=== PATIENT | male | born 1945 | race Caucasian/White ===

== ENCOUNTER 2016-10-16 09:21 | Emergency (ER) | payer MEDICARE, OTHER ==
[2016-10-16 09:30] VITALS: BP 139/66
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
== END 2016-10-16 13:20 | disposition home or self-care (01) ==
LOC: ER 09:21
PROC: 0JQ00ZZ Repair Scalp Subcutaneous Tissue and Fascia, Open Approach (ICD-10-PCS; principal; 2016-10-16)
PROC: 0JQ10ZZ Repair Face Subcutaneous Tissue and Fascia, Open Approach (ICD-10-PCS; 2016-10-16)
DX: S01.01XA Laceration without foreign body of scalp, initial encounter (principal); S01.81XA Laceration without foreign body of other part of head, initial encounter; W07.XXXA Fall from chair, initial encounter; Y92.238 Other place in hospital as the place of occurrence of the external cause; F41.9 Anxiety disorder, unspecified; F32.9 Major depressive disorder, single episode, unspecified; K21.9 Gastro-esophageal reflux disease without esophagitis; E03.9 Hypothyroidism, unspecified; I10 Essential (primary) hypertension; R56.9 Unspecified convulsions

== ENCOUNTER 2016-11-17 13:54 | Inpatient (IN) | payer MEDICARE, OTHER ==
--- OUTSIDE RECORDS SUMMARY | 2016-11-17 14:51 | XMS REPORT | Continuity of Care Document ---
:1945 Author Organization [facility] ([facility]) Address [address] [place] [address] Phone [phone] Care Team Providers Name Role Phone Jared Copeland Primary Care Provider [phone] Source Comments This disclosure is being made pursuant to the Care Everywhere program, applicable federal and state laws, and may not contain all informaitonavailable regarding this patient.[facility] ([facility]) Active Allergies and Adverse Reactions Allergen Noted Date Severity Reactions Comments Amoxicillin 09/28/2011 Rash Current Medications Prescription Sig. Disp. Refills Start Date End Date Status aspirin 325 mg tablet Take 325 mg by mouth Active daily. finasteride (PROSCAR) 5 Take 5 mg by mouth Active mg tablet daily. folic acid 1 mg tablet Take 1 mg by mouth Active daily. furosemide (LASIX) 20 Take 20 mg by mouth Active mg tablet daily. levothyroxine 100 mcg Take 100 mcg by Active tablet mouth every morning before breakfast. escitalopram (LEXAPRO) Take 10 mg by mouth Active 10 mg tablet daily. levetiracetam (KEPPRA) Take 500 mg by mouth Active 500 mg tablet daily. simvastatin (ZOCOR) 40 Take 40 mg by mouth Active mg tablet every evening. sucralfate (CARAFATE) 1 Take 1 g by mouth 4 Active gram tablet times daily. terazosin (HYTRIN) 2 mg Take 2 mg by mouth Active capsule at bedtime. OLANZapine (ZYPREXA) 20 Take 20 mg by mouth Active mg tablet at bedtime. LORazepam (ATIVAN) 0.5 Take 0.5 mg by mouth Active mg tablet every 4 hours as needed. MAG HYDROX/AL Take by mouth as Active HYDROX/SIMETH (MAALOX needed. PO) docusate (COLACE) 100 Take 100 mg by mouth Active mg capsule 2 times daily. omeprazole 20 mg Take 20 mg by mouth Active extended release Every morning. capsule potassium chloride Take 20 mEq by mouth Active (K-DUR, KLOR-CON M20) 2 times daily. 20 mEq tablet moisturizing (EUCERIN) apply 1 application Active cream topically as needed. polyethylene glycol Take 17 g by mouth 2 Active 3350 (MIRALAX) 17 times daily. gram/dose powder [place]-3 Fatty Take 1,000 mg by Active Acids-Vitamin E (FISH mouth 3 times daily. OIL) 1,000 mg Cap donepezil (ARICEPT) 5 Take 5 mg by mouth Active mg tablet at bedtime. levETIRAcetam (KEPPRA) Take 1,000 mg by Active 1,000 mg tablet mouth at bedtime. omeprazole (PRILOSEC) Take 40 mg by mouth Active 40 mg capsule at bedtime. Docosanol (ABREVA) 10 % by Apply externally Active Crea route as needed. albuterol 2.5 mg/3 mL Use 2.5 mg by Active inhalation solution inhalation every 4 hours as needed. NA PHOS,M-B/NA insert rectally as Active PHOS,DI-BA (FLEET ENEMA needed. VA) Vivuiwrbqsm-Bakxn-Sewu. Take by mouth as Active Sup 11 5-500 mg Cmpk needed. IPRATROPIUM/ALBUTEROL Use by inhalation Active SULFATE (DUONEB INH) as needed. ACETAMINOPHEN (TYLENOL Take 1,000 mg by Active EXTRA STRENGTH PO) mouth as needed. lamoTRIgine (LAMICTAL) Take 1 Tab by mouth 62 Tab 11 09/28/2011 Active 100 mg tablet 2 times daily. 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 Abdominal pain, unspecified site 03/25/2007 Congestive heart failure, unspecified 03/01/2007 Down's syndrome 02/08/2007 Social History Tobacco Use Types Packs/Day Years Used Date Never Smoker Smokeless Tobacco: Never Used Last Filed Vital Signs Vital Sign Reading Time Taken Blood Pressure 126/60 09/28/2011 2:02 PM 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 Pulse 64 09/28/2011 2:02 PM 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 Temperature 35.4 C (95.7 F) 03/09/2011 10:08 AM CDT Respiratory Rate - - Height 1.603 m (5' 3.11") 03/25/2008 9:25 AM CDT Weight 84.505 kg (186 lb 4.8 oz) 09/28/2011 2:02 PM 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 Body Mass Index 32.89 09/28/2011 2:02 PM 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 Oxygen Saturation - - Plan of Care Health Maintenance Due Date Last Done Comments Hepatitis B Vaccine (1 of 3 - Primary Series) 1945 Tdap Vaccine 1955 Td Vaccine 1962 Colonoscopy 1994 Prostate Cancer Screening 1994 Zoster Vaccine 2004 Pneumococcal Vaccine (1 of 2 - PCV13) 2009 Lipid Disorder Screening 04/18/2012 04/18/2007 Influenza Vaccine: Seasonal (#1) 04/24/2016 Results from Last 3 Months Not on file
--- NOTE | 2016-11-17 14:55 | ERNOTE ---
Dyspnea - General Presenting Symptoms: shortness of breath Time Seen by Provider: 11/17/16 14:39 Source: other Exam Limitations: clinical condition - Immun/Allergies/Home Medications Immunizations: IMMUNIZATION HX Immunizations Up to Date Yes History of Influenza Vaccine No Hx Pneumococcal Vaccination Yes Allergies/Adverse Reactions: Allergies soap Allergy (Severe, Verified 10/16/16 09:32) Hives amoxicillin [Amoxicillin] Allergy (Verified 10/16/16 09:32) prednisone Allergy (Verified 10/16/16 09:32) tamsulosin HCl [From Flomax] Allergy (Verified 10/16/16 09:32) Home Medications: HOME MEDICATIONS Albuterol Sulfate/Ipratropium [Duoneb 2.5-0.5MG/3ML Soln] 3 ml IH BID 11/08/15 [ Last Taken Unknown] Carbamide Peroxide [Debrox] 15 ml OT BID 11/08/15 [Last Taken Unknown] Chlorhexidine Gluconate [Periogard Oral Rinse 0.12%] 480 ml MM PC 11/08/15 [ Last Taken 11/08/15] Escitalopram Oxalate [Lexapro] 10 mg PO DAILY 11/08/15 [Last Taken 11/08/15] Esomeprazole Magnesium [Nexium] 40 mg PO DAILY 11/08/15 [Last Taken 11/08/15] Ipratropium [place] [Atrovent] 0.5 mg IH QID 11/08/15 [Last Taken 11/08/15] Lamotrigine [Lamictal] 100 mg PO BID 11/08/15 [Last Taken 11/08/15] Lanolin Alcohol/Mo/W.pet/[place] [Eucerin Creme] 57 gm TP DAILY 11/08/15 [Last Taken 11/08/15] Levetiracetam [Keppra] 1,000 mg PO HS 11/08/15 [Last Taken 11/07/15] Levothyroxine Sodium [Tirosint] 125 mcg PO DAILY 11/08/15 [Last Taken 11/08/15] Olanzapine [Zyprexa] 20 mg PO HS 11/08/15 [Last Taken 11/07/15] Polyethylene Glycol 3350 [Miralax] 17 gm PO DAILY 11/08/15 [Last Taken 11/08/15] Rosuvastatin Calcium [Crestor] 10 mg PO HS 11/08/15 [Last Taken 11/07/15] Sodium Chloride [Saline Mist] 45 ml NS BID 11/08/15 [Last Taken 11/08/15] levETIRAcetam [Keppra] 500 mg PO DAILY 11/08/15 [Last Taken 11/08/15] Nystatin 1,000,000 unit PO TID #1 bottle 12/03/15 [Last Taken Unknown] ALPRAZolam [Xanax] 0.25 mg PO TID PRN 08/07/16 [Last Taken Unknown] Albuterol Sulfate [Proair Hfa] 1 - 2 puff IH Q4H PRN 08/07/16 [Last Taken Unknown] Bisacodyl [Dulcolax Suppository] 10 mg RC DAILY PRN 08/07/16 [Last Taken Unknown ] Hydrocodone/Acetaminophen [Lortab 5-325 mg Tablet] 1 each PO Q4H PRN 08/07/16 [ Last Taken Unknown] Hydrophilic Ointment [Aquaphilic Ointment] 1 appl TP PRN PRN 08/07/16 [Last Taken Unknown] Lytes/[place] [Mouthkote Solution] 1 appl MM PRN PRN 08/07/16 [Last Taken Unknown] Polyvinyl Alcohol [Artificial Tears] 2 drop OP QID 08/07/16 [Last Taken Unknown] Saliva Substitution Combo No.9 [Biotene] 1 appl MM QID 08/07/16 [Last Taken Unknown] Triamcinolone Acetonide [Kenalog in Orabase] 1 appl DT BID 08/07/16 [Last Taken Unknown] guaiFENesin [Robitussin] 10 ml PO Q4H 08/07/16 [Last Taken Unknown] Acetaminophen [Tylenol] 1,000 mg PO Q6H PRN 10/16/16 [Last Taken Unknown] Simethicone [Mylicon Drops] 40 mg PO TID PRN 10/16/16 [Last Taken Unknown] Sucralfate [Carafate] 1 gm PO ACHS 10/16/16 [Last Taken Unknown] - History of Present Illness Narrative: Patient has down's syndrome and is living in a retirement. He is non verbal. Per licensed practical nurse who is with him he was okay when he got up this morning but around 08:30 started to 'gurgle'. Home health nurse that that evaluated him reports bilateral rales and O2 sat of 85%. When asked about po intake the caregiver states that he might have eaten less recently but had a whole packet of macaroni and cheese prior to coming here, no vomiting. He has had quite a few hospitalizations recently, was admitted in July 2016 for large pleural effusion and pneumonia, effusion was drained. He was admitted for pneumonia again mid August. Treatment GROOMING ASSISTANT: albuterol Initiating event: Denies: upper resp illness, out of meds, aspiration/choking Frequency of episodes: Reports: occassional episodes Review of Systems - Narrative Narrative: unobtainable as patient is non verbal - Patient's Past Medical History Patient History - Medical: Alzheimer's Disease, Anxiety, Depression, GERD, Hypothyroidism, Renal Failure, Seizures, Other Patient History - Cardiac/Respiratory: CHF, Hyperlipidemia Patient History - Cancer: No Hx of Cancer Patient History - Surgical Procedures: Cataracts, T & A Patient History - Other: None - Family History Mother Family History - Medical: Family History - Cardiac/Respiratory: Coronary Heart Disease Father Family History - Medical: Family History - Cardiac/Respiratory: Coronary Heart Disease - Social History Living Situations: home Abuse History: No History of abuse Psych History: No pertinent hx Alcohol Use: none Drug Use: none - Immunizations Immunizations Up to Date: Yes Hx Pneumococcal Vaccination: Yes History of Influenza Vaccine: No Physical Exam - Physical Exam General Appearance: Present: wd/wn, alert, no apparent distress Eye Exam: Normal inspection: bilateral, PERRL: bilateral Ears, Nose, Throat: Present: normal ENT inspection, normal pharynx Neck: Present: normal inspection Respiratory: Present: no respiratory distress, no accessory muscle use, chest nontender, rales - few, wheezing - few Cardiovascular/Chest: Present: regular rate, rhythm, no murmur Gastrointestinal/Abdominal: Present: normal bowel sounds, nontender, soft, distended Neurological Exam: Present: alert Skin Exam: Present: normal color, warm/dry ED Progress - Results and Orders Patient's Lab Results:: I have reviewed the patient's lab results. - Vital Signs Patient's Vital Signs:: I have reviewed the patient's vital signs. Vital Signs: Vital Signs 11/17/16 13:56 Temperature 36 C L Pulse Rate 96 Respiratory 20 Rate O2 Sat by Pulse 91 Oximetry - X-Ray X-Ray #1 X-Ray: chest - bibasilar infiltrate/interstitial prominence, most likely chronic Interpretation: Reviewed by me X-Ray #2 X-Ray: abdomen - non specific gas pattern, gaseous distention of the stomach Interpretation: Reviewed by me - Progress/Reassessment Chief Complaint: Dyspnea Progress Note-Subjective: 11/17/16 16:25 attempted to discuss patient with Dr Alegria, not available anymore 11/17/16 16:35 patient sitting in bed, O2 sat 88-90% on RA unlikely to be pneumonia as normal WBC, no fever favor CHF 11/17/16 16:[address] Mittal, okay to admit for observation for CHF, give lasix 80mg IV, get ABG 11/17/16 17:13 patient now febrile discussed with Dr Mittal, get rapid influenza, okay with antibiotic from pneumonia protocol Departure Clinical Impression: Down syndrome CHF (congestive heart failure) Qualifiers: Congestive heart failure type: unspecified congestive heart failure type Congestive heart failure chronicity: unspecified congestive heart failure chronicity Qualified Code(s): I50.9 - Heart failure, unspecified Pneumonia Qualifiers: Pneumonia type: due to unspecified organism Laterality: bilateral Lung location : lower lobe of lung Qualified Code(s): J18.9 - Pneumonia, unspecified organism - Departure Disposition: [facility] Condition: Fair
[2016-11-17 15:07] LABS: Hematocrit 45.5 % (42.0-52.0); Hemoglobin 14.5 gm/dL (13.5-18.0); Mean Cell Volume 94.4 fl (78-100); Mean Corpuscular Hemoglobin 30.1 pg (27-31); Mean Corpuscular Hgb Conc 31.9 g/dl (32-36); Mean Platelet Volume 9.8 fl (6.0-9.5); Neutrophil # 6.8 K/mm3 (1.3-6.0); Neutrophil % 82.7 % (42-75.0); Platelet Count 175 K/mm3 (150-450); Red Blood Count 4.82 M/mm3 (4.7-6.0); Red Cell Distribution Width 15.5 % (11.5-14.0); White Blood Count 8.2 K/mm3 (4.0-10.5)
[2016-11-17 15:38] LABS: Albumin * 3.4 gm/dl (3.4-5.0); Anion Gap 11.1 mmol/L (6.8-13.8); Bilirubin, Total 0.3 mg/dL (0.0-1.1); Ca. Corrected For Albumin 8.4 mg/dL (8.4-10.2); Calcium * 8.2 mg/dL (7.9-10.9); Carbon Dioxide 29.1 mmol/L (24-32.6); Potassium 4.2 mmol/L (3.4-4.6)
[2016-11-17] MEDS ORDERED: FUROSEMIDE 10 MG/ML VIAL IV ONE (16:55)
--- OUTSIDE RECORDS SUMMARY | 2016-11-17 17:09 | XMS REPORT | Continuity of Care Document ---
:1945 Author Organization [facility] ([facility]) Address [address] [place] [address] Phone [phone] Care Team Providers Name Role Phone Jared Copeland Primary Care Provider [phone] Source Comments This disclosure is being made pursuant to the Care Everywhere program, applicable federal and state laws, and may not contain all informaitonavailable regarding this patient.[facility] ([facility]) Active Allergies and Adverse Reactions Allergen Noted [...] 3350 (MIRALAX) 17 times daily. gram/dose powder [place]-3 Fatty Take 1,000 mg by Active Acids-Vitamin [...] rectally as Active PHOS,DI-BA (FLEET ENEMA needed. [place]) Shzzqqwrrav-Ghcxr-Ygqt. 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
[2016-11-17] MEDS ORDERED: FUROSEMIDE 10 MG/ML VIAL ONE (17:10)
[2016-11-17] MEDS ORDERED: LEVOFLOXACIN/D5W 750 MG in Premix Bag 1 BAG IV STA (17:19)
[2016-11-17] MEDS ORDERED: AZTREONAM 2 GM in DEXTROSE 5 % IN WATER 100 ML IV SCH ×2 (17:30)
[2016-11-17] MEDS: AZTREONAM 2 GM in DEXTROSE 5 % IN WATER 100 ML IV SCH ×2 (19:14)
--- NOTE | 2016-11-17 20:19 | HP ---
<Nichole Rinaldi - Last Filed: 11/18/16 07:21> Chief Complaint - Chief Complaint Date of Service: 11/17/16 Time of Service: 20:17 Chief Complaint: 'Gurgling sounds'. Source of HPI- Pt; unreliable, Pt's sister - ER provider report. History of Present Illness: Mr. Fernnado is a 71-yr-old WM Pt of Dr. Kemar Alegria with a PMH of: Anxiety, BPH, Chronic Renal Failure, Constipation, CHF, Down's Syndrome, GERD, HLD, Hypothyroidism & Seizures. History is obtained from pt's sister due to history of profound MRShade Ayala pt's was noted to have "gurgling LS" by the staff at the Nursing Home. Staff was concerned as that is how he presents when he is about to be sick. During evaluation at the ED, the CXR obtained showed Bibasilar infiltrates but it was improved from prior CXR. He was found to be febrile with a temp of 39.1 and was noted to have laboured breathing. The hematology and and chemistry lab work was unremarkable. The Abdominal X-ray showed mild to moderate gaseous distention. He will be admitted under observation status due to early signs of Pneumonia. He also had exam findings that could suggest SBO including: abd. distention & abd tenderness, and the presence of a fever, tachypnea may be early signs of complications. - Patient's Past Medical History Patient History - Medical: Alzheimer's Disease, Anxiety, Depression, GERD, Hypothyroidism, Renal Failure, Seizures, Other Patient History - Cardiac/Respiratory: CHF, Hyperlipidemia Patient History - Cancer: No Hx of Cancer Patient History - Surgical Procedures: Cataracts, T & A Patient History - Other: None - Family History Mother Family History - Medical: Family History - Cardiac/Respiratory: Coronary Heart Disease Father Family History - Medical: Family History - Cardiac/Respiratory: Coronary Heart Disease - Social History Living Situations: home Abuse History: No History of abuse Psych History: No pertinent hx Smoking Status: Never smoker Have you smoked in the past 12 months: No Do you dip or chew tobacco: No Alcohol Use: none Drug Use: none - Immunizations Immunizations Up to Date: Yes Hx Pneumococcal Vaccination: Yes History of Influenza Vaccine: No Review Of Systems (GEN) - Review of Systems Additional Comments: ROS unobtainable due to cognitive disorder. Immunizations: IMMUNIZATION HX Immunizations Up to Date Yes History of Influenza Vaccine No Hx Pneumococcal Vaccination Yes Allergies/Adverse Reactions: Allergies Allergy/AdvReac Type Severity Reaction Status Date / Time soap Allergy Severe Hives Verified 10/16/16 09:32 amoxicillin [Amoxicillin] Allergy Verified 10/16/16 09:32 prednisone Allergy Verified 10/16/16 09:32 tamsulosin HCl [From Flomax] Allergy Verified 10/16/16 09:32 Home Medications: HOME MEDICATIONS Albuterol Sulfate/Ipratropium [Duoneb 2.5-0.5MG/3ML Soln] 3 ml IH BID 11/08/15 [ Last Taken Unknown] Carbamide Peroxide [Debrox] 15 ml OT BID 11/08/15 [Last Taken Unknown] Chlorhexidine Gluconate [Periogard Oral Rinse 0.12%] 480 ml MM PC 11/08/15 [ Last Taken 11/08/15] Escitalopram Oxalate [Lexapro] 10 mg PO DAILY 11/08/15 [Last Taken 11/08/15] Esomeprazole Magnesium [Nexium] 40 mg PO DAILY 11/08/15 [Last Taken 11/08/15] Ipratropium [place] [Atrovent] 0.5 mg IH QID 11/08/15 [Last Taken 11/08/15] Lamotrigine [Lamictal] 100 mg PO BID 11/08/15 [Last Taken 11/08/15] Lanolin Alcohol/Mo/W.pet/[place] [Eucerin Creme] 57 gm TP DAILY 11/08/15 [Last Taken 11/08/15] Levetiracetam [Keppra] 1,000 mg PO HS 11/08/15 [Last Taken 11/07/15] Levothyroxine Sodium [Tirosint] 125 mcg PO DAILY 11/08/15 [Last Taken 11/08/15] Olanzapine [Zyprexa] 20 mg PO HS 11/08/15 [Last Taken 11/07/15] Polyethylene Glycol 3350 [Miralax] 17 gm PO DAILY 11/08/15 [Last Taken 11/08/15] Rosuvastatin Calcium [Crestor] 10 mg PO HS 11/08/15 [Last Taken 11/07/15] Sodium Chloride [Saline Mist] 45 ml NS BID 11/08/15 [Last Taken 11/08/15] levETIRAcetam [Keppra] 500 mg PO DAILY 11/08/15 [Last Taken 11/08/15] Nystatin 1,000,000 unit PO TID #1 bottle 12/03/15 [Last Taken Unknown] ALPRAZolam [Xanax] 0.25 mg PO TID PRN 08/07/16 [Last Taken Unknown] Albuterol Sulfate [Proair Hfa] 1 - 2 puff IH Q4H PRN 08/07/16 [Last Taken Unknown] Bisacodyl [Dulcolax Suppository] 10 mg RC DAILY PRN 08/07/16 [Last Taken Unknown ] Hydrocodone/Acetaminophen [Lortab 5-325 mg Tablet] 1 each PO Q4H PRN 08/07/16 [ Last Taken Unknown] Hydrophilic Ointment [Aquaphilic Ointment] 1 appl TP PRN PRN 08/07/16 [Last Taken Unknown] Lytes/[place] [Mouth[place] Solution] 1 appl MM PRN PRN 08/07/16 [Last Taken Unknown] Polyvinyl Alcohol [Artificial Tears] 2 drop OP QID 08/07/16 [Last Taken Unknown] Saliva Substitution Combo No.9 [Biotene] 1 appl MM QID 08/07/16 [Last Taken Unknown] Triamcinolone Acetonide [Kenalog in Or[place]] 1 appl DT BID 08/07/16 [Last Taken Unknown] guaiFENesin [Robitussin] 10 ml PO Q4H 08/07/16 [Last Taken Unknown] Acetaminophen [Tylenol] 1,000 mg PO Q6H PRN 10/16/16 [Last Taken Unknown] Simethicone [Mylicon Drops] 40 mg PO TID PRN 10/16/16 [Last Taken Unknown] Sucralfate [Carafate] 1 gm PO ACHS 10/16/16 [Last Taken Unknown] Exam - Exam Vital Signs: Vital Signs - Last Taken Temp 38.8 C H 11/17/16 19:49 Pulse 108 H 11/17/16 19:49 Resp 20 11/17/16 19:49 BP 112/82 11/17/16 19:49 Pulse Ox 91 11/17/16 19:49 Constitutional: Present: Alert, Mild distress, Other - Unable to follow directions due to prior cognitive deficit/MR, appears agitated, yells out. ENT Exam: Present: normal ENT inspection. Absent: nasal congestion, nasal drainage Eye Exam: bilateral eye: normal inspection, PERRL Neck: Present: full range of motion, supple, normal inspection Back Exam: Present: normal inspection, no CVA tenderness Breasts: Present: Exam deferred Respiratory: Present: accessory muscle use, rhonchi Cardiovascular/Chest: Present: normal peripheral pulses, regular rate, rhythm, no edema, no murmur Abdomen: Present: Normal bowel sounds, distended - Tympanitic abdomen /Rectal: Present: Exam deferred Extremity: Present: normal range of motion, non-tender, normal inspection Skin Exam: Present: warm/dry, no cyanosis Lymphatic: Present: no adenopathy Neurologic: Present: alert, other - unable to assess Level of orientation due to prior deficit. Appearance: Present: impaired insight Eye contact: Present: compulsive Thoughts: Present: incoherent Diagnostic Studies: Laboratory Results WBC 8.2 K/mm3 (4.0-10.5) 11/17/16 15:00 RBC 4.82 M/mm3 (4.7-6.0) 11/17/16 15:00 Hgb 14.5 gm/dL (13.5-18.0) 11/17/16 15:00 Hct 45.5 % (42.0-52.0) 11/17/16 15:00 MCV 94.4 fl (78-100) 11/17/16 15:00 MCH 30.1 pg (27-31) 11/17/16 15:00 MCHC 31.9 g/dl (32-36) L 11/17/16 15:00 RDW 15.5 % (11.5-14.0) H 11/17/16 15:00 Plt Count 175 K/mm3 (150-450) 11/17/16 15:00 MPV 9.8 fl (6.0-9.5) H 11/17/16 15:00 Immature Gran % (Auto) 0.10 % (0.001-0.429) 11/17/16 15:00 Immature Gran # (Auto) 0.01 K/mm3 (0.000-0.0310) 11/17/16 15:00 Neutrophils % 82.7 % (42-75.0) H 11/17/16 15:00 Lymphocytes % 12.8 % (20-51) L 11/17/16 15:00 Monocytes % 2.8 % (0.0-9) 11/17/16 15:00 Eosinophils % 1.5 % (0.0-3.0) 11/17/16 15:00 Basophils % 0.1 % (0.0-1.0) 11/17/16 15:00 Nucleated RBC % 0.0 k/mm3 (0-1) 11/17/16 15:00 Neutrophils # 6.8 K/mm3 (1.3-6.0) H 11/17/16 15:00 Lymphocytes # 1.1 k/mm3 (1.5-3.5) L 11/17/16 15:00 Monocytes # 0.2 k/mm3 (0.0-1.0) 11/17/16 15:00 Eosinophils # 0.1 k/mm3 (0.0-0.7) 11/17/16 15:00 Absolute Basophils 0.0 k/mm3 (0.0-0.1) 11/17/16 15:00 pCO2 40.2 mmHg (35.0-48.0) 11/17/16 16:55 pO2 64.7 mmHg (83.0-108.0) L 11/17/16 16:55 HCO3 23.1 mmol/L (21.0-28.0) 11/17/16 16:55 Total CO2 24.4 mmol/L (19.0-24.0) H 11/17/16 16:55 Base Excess -1.8 mmol/L (-2.0-3.0) 11/17/16 16:55 ABG pH 7.38 (7.35-7.45) 11/17/16 16:55 ABG O2 Sat (Measured) 92.3 % (94.0-98.0) L 11/17/16 16:55 Sodium 141 mmol/L (132-142) 11/17/16 15:00 Plasma Sodium 141 mmol/L (130-142) 11/17/16 15:00 Potassium 4.2 mmol/L (3.4-4.6) 11/17/16 15:00 Chloride 105 mmol/L (97-106) 11/17/16 15:00 Carbon Dioxide 29.1 mmol/L (24-32.6) 11/17/16 15:00 Anion Gap 11.1 mmol/L (6.8-13.8) 11/17/16 15:00 BUN 24 mg/dL (6-23) H D 11/17/16 15:00 Creatinine 1.50 mg/dL (0.4-1.4) H 11/17/16 15:00 Est GFR (Non-Af Amer) 49 mL/min (60-130) L 11/17/16 15:00 BUN/Creatinine Ratio 16.0 (9.0-21.6) 11/17/16 15:00 Random Glucose 128 mg/dL (70-110) H 11/17/16 15:00 Calcium 8.2 mg/dL (7.9-10.9) 11/17/16 15:00 Calcium Adj for Albumin 8.4 mg/dL (8.4-10.2) 11/17/16 15:00 Total Bilirubin 0.3 mg/dL (0.0-1.1) 11/17/16 15:00 AST 36 U/L (0-48) 11/17/16 15:00 ALT 45 U/L (19-67) 11/17/16 15:00 Alkaline Phosphatase 146 U/L (50-170) 11/17/16 15:00 B-Natriuretic Peptide 91 pg/mL (5-350) 11/17/16 15:00 Total Protein 8.0 gm/dL (6.2-8.2) 11/17/16 15:00 Albumin 3.4 gm/dl (3.4-5.0) 11/17/16 15:00 Amylase 117 U/L (25-115) H 11/17/16 15:00 Lipase 175 U/L (73-393) 11/17/16 15:00 Influenza Type A Ag Negative (NEGATIVE) 11/17/16 17:25 Influenza Type B Ag Negative (NEGATIVE) 11/17/16 17:25 Assessment/Plan - Assessment/Plan (1) Pneumonia Assessment: The CXR showed babisillar infiltrates but was unchanged from previous CXR. However given the increasing sputum production, coughing, ronchi LS, and fever, it will be beneficial to treat as early signs of pneumonia. Will cover with Azectam & Levaquin. Await Blood cultures, Daily CBC. Problem: Acute QualifierTitle: Pneumonia type: due to unspecified organism Laterality: bilateral Lung location: lower lobe of lung Qualified Code(s): J18.9 - Pneumonia, unspecified organism (2) Distended abdomen Assessment: The abdominal x-ray showed gaseous distention. His mental incapacity makes it hard to assess for abdominal pain or nausea or for him to communicate symtoms. Exam findings that could suggest SBO include: abd. distention & abd tenderness, and the presence of a fever, tachypnea may be early signs of complications. No vomiting and last bm is unknown. Will given schedule Simethicone. Could consider NG tube to decompress stomach if no improvement. Monitor closely for SBO especially given that he has a fever as this could mean complications of SBO such as bowel necrosis, bowel perforation, Problem: Acute (3) CRF (chronic renal failure) Problem: Chronic QualifierTitle: Chronic kidney disease stage: unspecified stage Qualified Code(s): N18.9 - Chronic kidney disease, unspecified (4) Down syndrome Problem: Chronic (5) HTN (hypertension) Problem: Chronic QualifierTitle: Hypertension type: essential hypertension Qualified Code( s): I10 - Essential (primary) hypertension (6) HLD (hyperlipidemia) Problem: Chronic QualifierTitle: Hyperlipidemia type: pure hypercholesterolemia Qualified Code(s): E78.00 - Pure hypercholesterolemia, unspecified; E78.0 - Pure hypercholesterolemia (7) GERD (gastroesophageal reflux disease) Problem: Chronic (8) Seizures Problem: Chronic <Jordan Lakhani - Last Filed: 11/18/16 15:41> Exam - Exam Vital Signs: Vital Signs - Last Taken Temp 36.9 C 11/18/16 10:42 Pulse 81 11/18/16 10:42 Resp 20 11/18/16 10:42 BP 105/62 11/18/16 10:42 Pulse Ox 91 11/18/16 10:42 Diagnostic Studies: Abnormal Lab Results 11/18/16 Range/Units 11:40 pO2 65.9 L (83.0-108.0) mmHg Base Excess -2.4 L (-2.0-3.0) mmol/L ABG O2 Sat (Measured) 92.5 L (94.0-98.0) % Laboratory Results WBC 14.2 K/mm3 (4.0-10.5) H D 11/18/16 06:00 RBC 3.76 M/mm3 (4.7-6.0) L 11/18/16 06:00 Hgb 11.5 gm/dL (13.5-18.0) L 11/18/16 06:00 Hct 34.8 % (42.0-52.0) L 11/18/16 06:00 MCV 92.6 fl (78-100) 11/18/16 06:00 MCH 30.6 pg (27-31) 11/18/16 06:00 MCHC 33.0 g/dl (32-36) 11/18/16 06:00 RDW 15.9 % (11.5-14.0) H 11/18/16 06:00 Plt Count 139 K/mm3 (150-450) L 11/18/16 06:00 MPV 10.7 fl (6.0-9.5) H 11/18/16 06:00 Immature Gran % (Auto) 0.70 % (0.001-0.429) H 11/18/16 06:00 Immature Gran # (Auto) 0.10 K/mm3 (0.000-0.0310) H 11/18/16 06:00 Neutrophils % 80.5 % (42-75.0) H 11/18/16 06:00 Lymphocytes % 10.8 % (20-51) L 11/18/16 06:00 Monocytes % 7.8 % (0.0-9) 11/18/16 06:00 Eosinophils % 0.1 % (0.0-3.0) 11/18/16 06:00 Basophils % 0.1 % (0.0-1.0) 11/18/16 06:00 Nucleated RBC % 0.0 k/mm3 (0-1) 11/18/16 06:00 Neutrophils # 11.4 K/mm3 (1.3-6.0) H 11/18/16 06:00 Lymphocytes # 1.5 k/mm3 (1.5-3.5) 11/18/16 06:00 Monocytes # 1.1 k/mm3 (0.0-1.0) H 11/18/16 06:00 Eosinophils # 0.0 k/mm3 (0.0-0.7) 11/18/16 06:00 Absolute Basophils 0.0 k/mm3 (0.0-0.1) 11/18/16 06:00 pCO2 40.6 mmHg (35.0-48.0) 11/18/16 11:40 pO2 65.9 mmHg (83.0-108.0) L 11/18/16 11:40 HCO3 22.8 mmol/L (21.0-28.0) 11/18/16 11:40 Total CO2 24.0 mmol/L (19.0-24.0) 11/18/16 11:40 Base Excess -2.4 mmol/L (-2.0-3.0) L 11/18/16 11:40 ABG pH 7.37 (7.35-7.45) 11/18/16 11:40 ABG O2 Sat (Measured) 92.5 % (94.0-98.0) L 11/18/16 11:40 Sodium 140 mmol/L (132-142) 11/18/16 06:00 Plasma Sodium 140 mmol/L (130-142) 11/18/16 06:00 Potassium 4.6 mmol/L (3.4-4.6) 11/18/16 06:00 Chloride 107 mmol/L (97-106) H 11/18/16 06:00 Carbon Dioxide 26.4 mmol/L (24-32.6) 11/18/16 06:00 Anion Gap 11.2 mmol/L (6.8-13.8) 11/18/16 06:00 BUN 36 mg/dL (6-23) H 11/18/16 06:00 Creatinine 2.17 mg/dL (0.4-1.4) H D 11/18/16 06:00 Est GFR (Non-Af Amer) 32 mL/min (60-130) L D 11/18/16 06:00 BUN/Creatinine Ratio 16.6 (9.0-21.6) 11/18/16 06:00 Random Glucose 103 mg/dL (70-110) 11/18/16 06:00 Calcium 7.7 mg/dL (7.9-10.9) L 11/18/16 06:00 Calcium Adj for Albumin 8.4 mg/dL (8.4-10.2) 11/17/16 15:00 Total Bilirubin 0.3 mg/dL (0.0-1.1) 11/17/16 15:00 AST 36 U/L (0-48) 11/17/16 15:00 ALT 45 U/L (19-67) 11/17/16 15:00 Alkaline Phosphatase 146 U/L (50-170) 11/17/16 15:00 B-Natriuretic Peptide 91 pg/mL (5-350) 11/17/16 15:00 Total Protein 8.0 gm/dL (6.2-8.2) 11/17/16 15:00 Albumin 3.4 gm/dl (3.4-5.0) 11/17/16 15:00 Amylase 117 U/L (25-115) H 11/17/16 15:00 Lipase 175 U/L (73-393) 11/17/16 15:00 Influenza Type A Ag Negative (NEGATIVE) 11/17/16 17:25 Influenza Type B Ag Negative (NEGATIVE) 11/17/16 17:25 Assessment/Plan - Narrative Narrative: Record reviewed, patient examined. All of [facility]'s care for the patient was directed by me. CT scan of abdomen showed constipation and bilateral lung infections, with left pleural effusion. I doubt a diagnosis of CHF with a BNP on admission of 91. Aspiration pneumonia is probable. Will do video swallow, keep NPO and treat for pneumonia.
[2016-11-17] MEDS ORDERED: BISACODYL 10 MG SUPP.RECT RC PRN (20:37)
[2016-11-17] MEDS ORDERED: ACETAMINOPHEN 325 MG TABLET PO PRN (20:37)
[2016-11-17] MEDS ORDERED: HYDROPHILIC OINTMENT 454 APPL JAR TP PRN (20:37)
[2016-11-17] MEDS ORDERED: HYDROcodone/ACETAMINOPHEN 1 EACH TABLET PO PRN (20:37)
[2016-11-17] MEDS ORDERED: SIMETHICONE 80 MG TAB.CHEW PO PRN (20:37)
[2016-11-17] MEDS ORDERED: ALBUTEROL SULFATE 200 PUFF INHALER IH PRN (20:37)
[2016-11-17] MEDS ORDERED: guaiFENesin 100 MG/5 ML BTL PO SCH ×2 (20:45→20:49)
[2016-11-17] MEDS ORDERED: IPRATROPIUM BROMIDE 0.5 MG/2.5 ML VIAL.NEB IH SCH (20:45)
[2016-11-17] MEDS ORDERED: guaiFENesin 100 MG/5 ML BTL PO PRN (20:49)
[2016-11-17] MEDS ORDERED: ALBUTEROL SULFATE/IPRATROPIUM 3 ML NEBU IH ONE (20:55)
[2016-11-17] MEDS ORDERED: CARBAMIDE PEROXIDE 150 DROP BTL OT SCH (21:00)
[2016-11-17] MEDS ORDERED: ALBUTEROL SULFATE/IPRATROPIUM 3 ML NEBU IH SCH (21:00)
[2016-11-17] MEDS ORDERED: SODIUM CHLORIDE 45 SPRAY BTL NS SCH (21:00)
[2016-11-17] MEDS ORDERED: TRIAMCINOLONE ACETONIDE 5 APPL TUBE DT SCH (21:00)
[2016-11-17] MEDS: ALBUTEROL SULFATE/IPRATROPIUM 3 ML NEBU IH SCH (21:00)
[2016-11-17] MEDS ORDERED: ACETAMINOPHEN 500 MG TABLET PO PRN (21:49)
[2016-11-17] MEDS ORDERED: LORazepam 2 MG/ML DISP.SYRIN IV ONE (22:04)
[2016-11-17] MEDS: NORMAL SALINE 1,000 ML IV ONE (22:49)
[2016-11-17] MEDS: POLYVINYL ALCOHOL 150 DROP BTL OP SCH (22:52)
[2016-11-17] MEDS: levETIRAcetam 500 MG TABLET PO SCH (22:54)
[2016-11-17] MEDS: SIMETHICONE 80 MG TAB.CHEW PO SCH (22:57)
[2016-11-17] MEDS: SUCRALFATE 1 G TABLET PO SCH (22:57)
[2016-11-17] MEDS: lamoTRIgine 100 MG TABLET PO SCH (22:57)
[2016-11-17] MEDS: OLANZapine 5 MG TABLET PO SCH (23:00)
[2016-11-18] MEDS: ALBUTEROL SULFATE/IPRATROPIUM 3 ML NEBU IH SCH ×3 (05:39→18:03)
[2016-11-18 06:31] LABS: Hematocrit 34.8 % (42.0-52.0); Hemoglobin 11.5 gm/dL (13.5-18.0); Mean Cell Volume 92.6 fl (78-100); Mean Corpuscular Hemoglobin 30.6 pg (27-31); Mean Platelet Volume 10.7 fl (6.0-9.5); Neutrophil # 11.4 K/mm3 (1.3-6.0); Neutrophil % 80.5 % (42-75.0); Platelet Count 139 K/mm3 (150-450); Red Blood Count 3.76 M/mm3 (4.7-6.0); Red Cell Distribution Width 15.9 % (11.5-14.0); White Blood Count 14.2 K/mm3 (4.0-10.5)
[2016-11-18 06:38] LABS: Anion Gap 11.2 mmol/L (6.8-13.8); BUN/Creatinine Ratio 16.6 (9.0-21.6); Calcium * 7.7 mg/dL (7.9-10.9); Carbon Dioxide 26.4 mmol/L (24-32.6); Estimated Creat Clear 22.8; Potassium 4.6 mmol/L (3.4-4.6)
[2016-11-18] MEDS: ROSUVASTATIN CALCIUM 10 MG TABLET PO SCH ×2 (06:57→21:40)
[2016-11-18] MEDS: Lytes/Yerba Santa 240 APPL BTL MM SCH ×4 (06:58→17:38)
[2016-11-18] MEDS: AZTREONAM 2 GM in DEXTROSE 5 % IN WATER 100 ML IV SCH ×2 (07:01)
[2016-11-18] MEDS: NORMAL SALINE 1,000 ML IV ONE (07:01)
[2016-11-18] MEDS ORDERED: LEVOTHYROXINE SODIUM 100 MCG TABLET ONE (07:06)
[2016-11-18] MEDS ORDERED: LEVOTHYROXINE SODIUM 25 MCG TABLET ONE (07:06)
[2016-11-18] MEDS: SUCRALFATE 1 G TABLET PO SCH ×4 (07:06→21:40)
[2016-11-18] MEDS: PANTOPRAZOLE SODIUM 40 MG TABLET.EC PO SCH (07:07)
[2016-11-18] MEDS: LEVOTHYROXINE SODIUM 125 MCG TABLET PO SCH (07:07)
[2016-11-18] MEDS ORDERED: NORMAL SALINE 1,000 ML IV ONE (07:09)
[2016-11-18] MEDS ORDERED: IPRATROPIUM BROMIDE 0.5 MG/2.5 ML VIAL.NEB IH PRN (07:34)
[2016-11-18] MEDS ORDERED: AZITHROMYCIN 500 MG in DEXTROSE 5 % IN WATER 250 ML IV ONE ×2 (08:00)
[2016-11-18] MEDS ORDERED: DIATRIZOATE MEGLU/DIATRIZO SOD 30 ML BTL PO ONE (08:44)
[2016-11-18] MEDS: CEFOXITIN SODIUM 1 GM in DEXTROSE 5 % IN WATER 100 ML IV SCH ×6 (08:46→19:03)
[2016-11-18] MEDS: POLYVINYL ALCOHOL 150 DROP BTL OP SCH ×4 (08:48→21:40)
[2016-11-18] MEDS: CARBAMIDE PEROXIDE 150 DROP BTL OT SCH ×2 (08:48→21:41)
[2016-11-18] MEDS: MINERAL OIL/PETROLATUM,WHITE 454 APPL JAR TP SCH (08:48)
[2016-11-18] MEDS: levETIRAcetam 500 MG TABLET PO SCH ×2 (08:49→21:44)
[2016-11-18] MEDS: ESCITALOPRAM OXALATE 10 MG TAB PO SCH (08:49)
[2016-11-18] MEDS: TRIAMCINOLONE ACETONIDE 5 APPL TUBE DT SCH ×2 (08:49→21:43)
[2016-11-18] MEDS: lamoTRIgine 100 MG TABLET PO SCH ×2 (08:49→21:44)
[2016-11-18] MEDS: Lytes/Yerba Santa 60 APPL BTL MM PRN ×5 (08:50→23:25)
[2016-11-18] MEDS: POLYETHYLENE GLYCOL 3350 119 GM BTL PO SCH (08:50)
[2016-11-18] MEDS: CHLORHEXIDINE GLUCONATE 480 ML BTL MM SCH ×3 (08:51→19:02)
[2016-11-18] MEDS: NYSTATIN 60 ML BTL PO SCH ×3 (08:51→17:37)
[2016-11-18] MEDS: SIMETHICONE 80 MG TAB.CHEW PO SCH ×4 (08:51→21:47)
[2016-11-18] MEDS: SODIUM CHLORIDE 45 SPRAY BTL NS SCH ×2 (08:52→21:47)
[2016-11-18] MEDS ORDERED: POLYETHYLENE GLYCOL 3350 119 GM BTL PO SCH (09:00)
[2016-11-18] MEDS ORDERED: MINERAL OIL/PETROLATUM,WHITE 454 APPL JAR TP SCH (09:00)
[2016-11-18] MEDS ORDERED: NYSTATIN 60 ML BTL PO SCH (09:00)
[2016-11-18] MEDS ORDERED: NORMAL SALINE 1,000 ML IV PRN (09:20)
[2016-11-18] MEDS: ALBUTEROL SULFATE 2.5 MG/0.5 ML VIAL.NEB IH SCH ×2 (10:16→11:38)
[2016-11-18] MEDS ORDERED: ALBUTEROL SULFATE 2.5 MG/0.5 ML VIAL.NEB IH PRN (13:14)
[2016-11-18] MEDS: ENOXAPARIN SODIUM 30 MG/0.3 ML SYRG SC SCH (14:20)
[2016-11-18] MEDS ORDERED: POTASSIUM CHLORIDE IV PRN (15:37)
[2016-11-18] MEDS ORDERED: NORMAL SALINE IV PRN (15:37)
[2016-11-18] MEDS ORDERED: DEXTROSE 5% IV PRN (15:37)
[2016-11-18] MEDS ORDERED: LEVOFLOXACIN/D5W 750 MG in Premix Bag 1 BAG IV SCH (17:22)
[2016-11-18] MEDS ORDERED: ALBUTEROL SULFATE/IPRATROPIUM 3 ML NEBU IH SCH (20:46)
[2016-11-18] MEDS: POTASSIUM CHLORIDE 20 MEQ in DEXTROSE 5%-NORMAL SALINE 990 ML IV SCH (21:35)
[2016-11-18] MEDS: OLANZapine 5 MG TABLET PO SCH (21:47)
[2016-11-18] MEDS: SENNOSIDES/DOCUSATE SODIUM 1 TAB TABLET PO SCH (21:51)
[2016-11-18] MEDS: BISACODYL 5 MG TABLET.DR PO SCH (23:25)
[2016-11-18] MEDS: ALPRAZolam 0.25 MG TABLET PO PRN (23:26)
[2016-11-19] MEDS: Lytes/Yerba Santa 60 APPL BTL MM PRN ×3 (00:59→21:08)
[2016-11-19] MEDS: Lytes/Yerba Santa 240 APPL BTL MM SCH ×5 (01:00→21:10)
[2016-11-19] MEDS: CEFOXITIN SODIUM 1 GM in DEXTROSE 5 % IN WATER 100 ML IV SCH ×8 (01:02→19:46)
[2016-11-19 05:14] LABS: Hematocrit 34.2 % (42.0-52.0); Mean Cell Volume 93.2 fl (78-100); Mean Corpuscular Hgb Conc 32.2 g/dl (32-36); Mean Platelet Volume 10.5 fl (6.0-9.5); Platelet Count 127 K/mm3 (150-450); Red Blood Count 3.67 M/mm3 (4.7-6.0); White Blood Count 8.3 K/mm3 (4.0-10.5)
[2016-11-19 05:15] LABS: Anion Gap 11.1 mmol/L (6.8-13.8); BUN/Creatinine Ratio 17.3 (9.0-21.6); Carbon Dioxide 27.9 mmol/L (24-32.6); Estimated Creat Clear 27.6; Total Cells Counted 100
[2016-11-19 05:22] LABS: Band 22 % (0-2.0); Eosinophil 1 % (0-3); Lymphocyte 11 % (20-51); Monocyte 3 % (0-9); Neutrophil 63 % (42-75); Neutrophil # 5.2 K/mm3 (1.3-6.0); Platelet Estimate Decreased (NORMAL); RBC Morphology Normal (NORMAL)
[2016-11-19] MEDS: POTASSIUM CHLORIDE 20 MEQ in DEXTROSE 5%-NORMAL SALINE 990 ML IV SCH (06:56)
[2016-11-19] MEDS: ALBUTEROL SULFATE/IPRATROPIUM 3 ML NEBU IH SCH ×2 (07:34→18:27)
[2016-11-19] MEDS: SUCRALFATE 1 G TABLET PO SCH ×4 (09:47→21:04)
[2016-11-19] MEDS: MINERAL OIL/PETROLATUM,WHITE 454 APPL JAR TP SCH (09:48)
[2016-11-19] MEDS: POLYVINYL ALCOHOL 150 DROP BTL OP SCH ×4 (09:49→21:04)
[2016-11-19] MEDS: TRIAMCINOLONE ACETONIDE 5 APPL TUBE DT SCH ×2 (09:49→21:06)
[2016-11-19] MEDS: CARBAMIDE PEROXIDE 150 DROP BTL OT SCH ×2 (09:52→21:06)
[2016-11-19] MEDS: BISACODYL 5 MG TABLET.DR PO SCH (09:58)
[2016-11-19] MEDS: PANTOPRAZOLE SODIUM 40 MG TABLET.EC PO SCH (09:58)
[2016-11-19] MEDS: LEVOTHYROXINE SODIUM 125 MCG TABLET PO SCH (09:58)
[2016-11-19] MEDS: ESCITALOPRAM OXALATE 10 MG TAB PO SCH (10:00)
[2016-11-19] MEDS: levETIRAcetam 500 MG TABLET PO SCH ×2 (10:00→21:07)
[2016-11-19] MEDS: lamoTRIgine 100 MG TABLET PO SCH ×2 (10:00→21:08)
[2016-11-19] MEDS: SENNOSIDES/DOCUSATE SODIUM 1 TAB TABLET PO SCH (10:01)
[2016-11-19] MEDS: SIMETHICONE 80 MG TAB.CHEW PO SCH ×4 (10:01→21:10)
[2016-11-19] MEDS: NYSTATIN 60 ML BTL PO SCH ×3 (10:04→17:38)
[2016-11-19] MEDS: POLYETHYLENE GLYCOL 3350 119 GM BTL PO SCH (10:04)
[2016-11-19] MEDS: CHLORHEXIDINE GLUCONATE 480 ML BTL MM SCH ×3 (10:04→19:48)
[2016-11-19] MEDS: SODIUM CHLORIDE 45 SPRAY BTL NS SCH ×2 (10:05→21:10)
[2016-11-19] MEDS: DEXTROSE 5%-0.5 NORMAL SALINE 1,000 ML IV PRN (10:49)
[2016-11-19] MEDS: AZITHROMYCIN 500 MG in DEXTROSE 5 % IN WATER 250 ML IV SCH ×2 (10:51)
--- NOTE | 2016-11-19 12:08 | PN ---
Subjective - Date and Time Seen Date: 11/19/16 Time: 12:03 Subjective Narrative: Improving. O2 sats in the high 90's on nasal cannula oxygen. Has been constipated. NPO now because aspiration pneumonia is suspected. Echo ordered for Sunday, because diagnosis of CHF is doubted. Video swallow ordered for Sunday. Objective - Review of Systems Generalized/Overall Review: Reports: Malaise EENTM: Reports: No Symptoms Reported Respiratory: Reports: No Symptoms Reported Cardiac: Reports: No Symptoms Reported Abdominal: Reports: No Symptoms Reported Genitourinary Symptoms: Reports: No Symptoms Reported Musculoskeletal Complaints: Reports: No Symptoms Reported Neurological: Reports: No Symptoms Reported Skin: Reports: No Symptoms Reported Endocrine: Reports: No Symptoms Reported Misc: All systems neg except as marked - Vitals Vitals: Last Vital Signs Selected Entries 11/19/16 11:04 Temperature 36.8 C Temperature Oral Source Pulse Rate 87 Respiratory 20 Rate Blood Pressure 134/60 Blood Pressure Sitting Position O2 Sat by Pulse 100 Oximetry Oxygen Delivery Nasal Cannula Method Oxygen Flow 2 Rate - Abnormal Lab Findings Abnormal Lab Findings: Abnormal Lab Results 11/19/16 11/19/16 Range/Units 05:00 05:00 RBC 3.67 L (4.7-6.0) M/mm3 Hgb 11.0 L (13.5-18.0) gm/dL Hct 34.2 L (42.0-52.0) % RDW 16.0 H (11.5-14.0) % Plt Count 127 L (150-450) K/mm3 MPV 10.5 H (6.0-9.5) fl Band Neuts % (Manual) 22 H (0-2.0) % Lymphocytes % (Manual) 11 L (20-51) % Lymphocytes # (Manual) 0.9 L (1.5-3.5) k/mm3 Platelet Estimate Decreased L (NORMAL) Sodium 144 H (132-142) mmol/L Plasma Sodium 144 H (130-142) mmol/L Potassium 5.0 H (3.4-4.6) mmol/L Chloride 110 H (97-106) mmol/L BUN 31 H (6-23) mg/dL Creatinine 1.79 H (0.4-1.4) mg/dL Est GFR (Non-Af Amer) 40 L D (60-130) mL/min - Exam Constitutional: Present: Alert, Cooperative, Well developed, No distress, Obese ENT Exam: Present: normal ENT inspection Neck: Present: normal inspection Respiratory: Present: lungs clear, no respiratory distress Cardiovascular/Chest: Present: regular rate, rhythm, no murmur Abdomen: Present: Normal bowel sounds, soft, nontender, nondistended, no rebound tenderness, no hepatospenomegaly, no masses, obese Extremity: Present: normal inspection, pedal edema Skin Exam: Present: normal color, warm/dry, no cyanosis Neurologic: Present: alert Appearance: Present: appropriate appearance, neat Eye contact: Present: cooperative Assessment/Plan Plan Narrative: Treat constipation. Wean O2. IV antibiotics. Adjust IV fluids. Follow labs. Echo and video swallow tomorrow. - Problems/Diagnosis (1) Aspiration pneumonia Problem: Acute Qualifiers: Laterality: bilateral Lung location: lower lobe of lung (2) Constipation Problem: Acute Qualifiers: Constipation type: slow transit constipation Qualified Code(s): K59.01 - Slow transit constipation (3) Hypernatremia Problem: Acute (4) Hyperkalemia Problem: Acute (5) Pneumonia Problem: Acute Qualifiers: Pneumonia type: due to unspecified organism Laterality: bilateral Lung location: lower lobe of lung Qualified Code(s): J18.9 - Pneumonia, unspecified organism (6) Down syndrome Problem: Chronic (7) GERD (gastroesophageal reflux disease) Problem: Chronic Qualifiers: Esophagitis presence: without esophagitis Qualified Code(s): K21.9 - Gastro -esophageal reflux disease without esophagitis (8) HLD (hyperlipidemia) Problem: Chronic Qualifiers: Hyperlipidemia type: pure hypercholesterolemia Qualified Code(s): E78.00 - Pure hypercholesterolemia, unspecified; E78.0 - Pure hypercholesterolemia (9) HTN (hypertension) Problem: Chronic Qualifiers: Hypertension type: essential hypertension Qualified Code(s): I10 - Essential (primary) hypertension (10) Seizures Problem: Chronic (11) Chronic renal failure, stage 3 (moderate) Problem: Chronic (12) Mental retardation Problem: Chronic
[2016-11-19] MEDS: ENOXAPARIN SODIUM 30 MG/0.3 ML SYRG SC SCH (17:31)
[2016-11-19] MEDS: ROSUVASTATIN CALCIUM 10 MG TABLET PO SCH (21:05)
[2016-11-19] MEDS: OLANZapine 5 MG TABLET PO SCH (21:09)
[2016-11-20] MEDS: ALPRAZolam 0.25 MG TABLET PO PRN (00:26)
[2016-11-20] MEDS: DEXTROSE 5%-0.5 NORMAL SALINE 1,000 ML IV PRN ×2 (02:11→20:35)
[2016-11-20] MEDS: CEFOXITIN SODIUM 1 GM in DEXTROSE 5 % IN WATER 100 ML IV SCH ×4 (02:12→09:02)
[2016-11-20 05:44] LABS: Hematocrit 34.9 % (42.0-52.0); Hemoglobin 11.4 gm/dL (13.5-18.0); Mean Cell Volume 93.3 fl (78-100); Mean Corpuscular Hemoglobin 30.5 pg (27-31); Mean Corpuscular Hgb Conc 32.7 g/dl (32-36); Mean Platelet Volume 10.5 fl (6.0-9.5); Neutrophil # 4.4 K/mm3 (1.3-6.0); Neutrophil % 75.9 % (42-75.0); Platelet Count 118 K/mm3 (150-450); Red Blood Count 3.74 M/mm3 (4.7-6.0); Red Cell Distribution Width 15.8 % (11.5-14.0); White Blood Count 5.7 K/mm3 (4.0-10.5)
[2016-11-20 06:01] LABS: Albumin * 2.3 gm/dl (3.4-5.0); Anion Gap 9.5 mmol/L (6.8-13.8); BUN/Creatinine Ratio 13.3 (9.0-21.6); Bilirubin, Total 0.3 mg/dL (0.0-1.1); Ca. Corrected For Albumin 9.1 mg/dL (8.4-10.2); Calcium * 8.1 mg/dL (7.9-10.9); Carbon Dioxide 27.5 mmol/L (24-32.6); Total Protein 6.3 gm/dL (6.2-8.2)
[2016-11-20] MEDS: ALBUTEROL SULFATE/IPRATROPIUM 3 ML NEBU IH SCH ×2 (07:13→18:22)
--- NOTE | 2016-11-20 07:30 | PN ---
Subjective - Date and Time Seen Date: 11/20/16 Time: : Subjective Narrative: Patietn opened eyes with name call. Objective - Review of Systems Generalized/Overall Review: Reports: Weakness. Denies: Chills, Fever EENTM: Reports: No Symptoms Reported Respiratory: Reports: Cough, Shortness of Breath. Denies: Orthopnea Cardiac: Denies: Chest Pain, Edema, Palpitations Abdominal: Denies: Nausea, Vomiting Genitourinary Symptoms: Denies: Urgency, Frequency Neurological: Denies: Anxiety, Depressed - Vitals Vitals: Last Vital Signs Temp 36.5 C 11/20/16 03:00 Pulse 56 L 11/20/16 07:13 Resp 12 11/20/16 07:13 BP 138/52 11/20/16 03:00 Pulse Ox 98 11/20/16 07:13 - Abnormal Lab Findings Abnormal Lab Findings: Abnormal Lab Results 11/20/16 11/20/16 Range/Units 05:15 05:15 RBC 3.74 L (4.7-6.0) M/mm3 Hgb 11.4 L (13.5-18.0) gm/dL Hct 34.9 L (42.0-52.0) % RDW 15.8 H (11.5-14.0) % Plt Count 118 L (150-450) K/mm3 MPV 10.5 H (6.0-9.5) fl Immature Gran % (Auto) 0.50 H (0.001-0.429) % Neutrophils % 75.9 H (42-75.0) % Lymphocytes % 15.5 L (20-51) % Eosinophils % 3.7 H (0.0-3.0) % Lymphocytes # 0.9 L (1.5-3.5) k/mm3 Sodium 143 H (132-142) mmol/L Plasma Sodium 143 H (130-142) mmol/L Chloride 110 H (97-106) mmol/L Creatinine 1.43 H (0.4-1.4) mg/dL Est GFR (Non-Af Amer) 52 L D (60-130) mL/min Albumin 2.3 L (3.4-5.0) gm/dl - Exam Constitutional: Present: Alert, Other - mentally retarded ENT Exam: Present: hearing grossly normal Neck: Present: supple Breasts: Present: Exam deferred Respiratory: Present: decreased breath sounds, No rales, No wheezing Cardiovascular/Chest: Present: regular rate, rhythm, no JVD, no murmur Abdomen: Present: Normal bowel sounds, soft, nontender, distended Extremity: Present: no pedal edema, no calf tenderness Assessment/Plan - Problems/Diagnosis (1) Aspiration pneumonia Problem: Acute Qualifiers: Laterality: bilateral Lung location: lower lobe of lung (2) Constipation Problem: Acute Qualifiers: Constipation type: slow transit constipation Qualified Code(s): K59.01 - Slow transit constipation (3) Hypernatremia Problem: Acute (4) Down syndrome Problem: Chronic (5) HLD (hyperlipidemia) Problem: Chronic Qualifiers: Hyperlipidemia type: pure hypercholesterolemia Qualified Code(s): E78.00 - Pure hypercholesterolemia, unspecified; E78.0 - Pure hypercholesterolemia (6) HTN (hypertension) Problem: Chronic Qualifiers: Hypertension type: essential hypertension Qualified Code(s): I10 - Essential (primary) hypertension (7) CRF (chronic renal failure) Problem: Chronic Qualifiers: Chronic kidney disease stage: stage 3 (moderate) Qualified Code(s): N18.9 - Chronic kidney disease, unspecified (8) Leukocytosis Problem: Acute Qualifiers: Leukocytosis type: other Qualified Code(s): D72.828 - Other elevated white blood cell count Narrative: minerva
[2016-11-20] MEDS: AZITHROMYCIN 500 MG in DEXTROSE 5 % IN WATER 250 ML IV SCH ×2 (08:34)
[2016-11-20] MEDS: SENNOSIDES/DOCUSATE SODIUM 1 TAB TABLET PO SCH ×2 (10:01→13:58)
[2016-11-20] MEDS: SUCRALFATE 1 G TABLET PO SCH ×6 (10:01→22:48)
[2016-11-20] MEDS: PANTOPRAZOLE SODIUM 40 MG TABLET.EC PO SCH ×2 (10:02→13:57)
[2016-11-20] MEDS: SIMETHICONE 80 MG TAB.CHEW PO SCH ×5 (10:02→22:53)
[2016-11-20] MEDS: ESCITALOPRAM OXALATE 10 MG TAB PO SCH ×2 (10:02→13:58)
[2016-11-20] MEDS: lamoTRIgine 100 MG TABLET PO SCH ×3 (10:02→22:53)
[2016-11-20] MEDS: LEVOTHYROXINE SODIUM 125 MCG TABLET PO SCH ×2 (10:02→13:57)
[2016-11-20] MEDS: BISACODYL 5 MG TABLET.DR PO SCH (10:03)
[2016-11-20] MEDS: levETIRAcetam 500 MG TABLET PO SCH ×3 (10:03→22:52)
[2016-11-20] MEDS: TRIAMCINOLONE ACETONIDE 5 APPL TUBE DT SCH ×3 (10:04→22:51)
[2016-11-20] MEDS: MINERAL OIL/PETROLATUM,WHITE 454 APPL JAR TP SCH (10:04)
[2016-11-20] MEDS: CHLORHEXIDINE GLUCONATE 480 ML BTL MM SCH ×4 (10:05→19:03)
[2016-11-20] MEDS: PIPERACILLIN SODIUM/TAZOBACTAM 3.375 GM in DEXTROSE 5 % IN WATER 100 ML IV SCH ×4 (10:05→15:55)
[2016-11-20] MEDS: NYSTATIN 60 ML BTL PO SCH ×4 (10:06→16:11)
[2016-11-20] MEDS: POLYVINYL ALCOHOL 150 DROP BTL OP SCH ×5 (10:06→22:47)
[2016-11-20] MEDS: Lytes/Yerba Santa 240 APPL BTL MM SCH ×4 (10:07→16:12)
[2016-11-20] MEDS: SODIUM CHLORIDE 45 SPRAY BTL NS SCH ×3 (10:07→22:53)
[2016-11-20] MEDS: CARBAMIDE PEROXIDE 150 DROP BTL OT SCH ×3 (10:08→22:49)
[2016-11-20] MEDS: POLYETHYLENE GLYCOL 3350 119 GM BTL PO SCH (10:11)
[2016-11-20] MEDS: ENOXAPARIN SODIUM 30 MG/0.3 ML SYRG SC SCH (15:56)
[2016-11-20] MEDS: ROSUVASTATIN CALCIUM 10 MG TABLET PO SCH (22:49)
[2016-11-21] MEDS: OLANZapine 5 MG TABLET PO SCH ×2 (00:46→20:33)
[2016-11-21] MEDS: Lytes/Yerba Santa 240 APPL BTL MM SCH ×5 (00:46→20:39)
[2016-11-21] MEDS: PIPERACILLIN SODIUM/TAZOBACTAM 3.375 GM in DEXTROSE 5 % IN WATER 100 ML IV SCH ×8 (00:46→23:23)
[2016-11-21 05:16] LABS: Hematocrit 33.9 % (42.0-52.0); Mean Cell Volume 92.1 fl (78-100); Mean Corpuscular Hemoglobin 29.9 pg (27-31); Mean Corpuscular Hgb Conc 32.4 g/dl (32-36); Mean Platelet Volume 10.8 fl (6.0-9.5); Neutrophil # 2.9 K/mm3 (1.3-6.0); Neutrophil % 63.4 % (42-75.0); Platelet Count 145 K/mm3 (150-450); Red Blood Count 3.68 M/mm3 (4.7-6.0); Red Cell Distribution Width 15.5 % (11.5-14.0); White Blood Count 4.5 K/mm3 (4.0-10.5)
[2016-11-21 05:28] LABS: Anion Gap 10.1 mmol/L (6.8-13.8); BUN/Creatinine Ratio 9.4 (9.0-21.6); Calcium * 8.1 mg/dL (7.9-10.9); Carbon Dioxide 28.5 mmol/L (24-32.6); Estimated Creat Clear 38.9; Potassium 3.6 mmol/L (3.4-4.6)
[2016-11-21] MEDS: ALBUTEROL SULFATE/IPRATROPIUM 3 ML NEBU IH SCH ×2 (06:15→18:32)
[2016-11-21] MEDS: SUCRALFATE 1 G TABLET PO SCH ×4 (06:48→20:29)
[2016-11-21] MEDS: PANTOPRAZOLE SODIUM 40 MG TABLET.EC PO SCH (06:48)
[2016-11-21] MEDS: LEVOTHYROXINE SODIUM 125 MCG TABLET PO SCH (06:49)
--- NOTE | 2016-11-21 08:28 | PN ---
Subjective - Date and Time Seen Date: 11/21/16 Time: 08:24 Subjective Narrative: Patient more awake. Ate a good portion of his breakfast. Speech therapy saw patient. Objective - Review of Systems Generalized/Overall Review: Denies: Chills, Fever EENTM: Reports: No Symptoms Reported Respiratory: Reports: No Symptoms Reported Cardiac: Reports: No Symptoms Reported Abdominal: Reports: No Symptoms Reported Genitourinary Symptoms: Reports: No Symptoms Reported Musculoskeletal Complaints: Reports: No Symptoms Reported Neurological: Reports: No Symptoms Reported Skin: Reports: No Symptoms Reported Endocrine: Reports: No Symptoms Reported Misc: All systems neg except as marked - rest of ROS is unobtainable due to his mental capacity - Vitals Vitals: Last Vital Signs Temp 36.2 C L 11/21/16 06:49 Pulse 70 11/21/16 06:49 Resp 20 11/21/16 06:49 BP 148/87 11/21/16 06:49 Pulse Ox 98 11/21/16 06:49 - Abnormal Lab Findings Abnormal Lab Findings: Abnormal Lab Results 11/21/16 11/21/16 Range/Units 05:12 05:12 RBC 3.68 L (4.7-6.0) M/mm3 Hgb 11.0 L (13.5-18.0) gm/dL Hct 33.9 L (42.0-52.0) % RDW 15.5 H (11.5-14.0) % Plt Count 145 L (150-450) K/mm3 MPV 10.8 H (6.0-9.5) fl Eosinophils % 4.9 H (0.0-3.0) % Lymphocytes # 1.2 L (1.5-3.5) k/mm3 Sodium 145 H (132-142) mmol/L Plasma Sodium 145 H (130-142) mmol/L Chloride 110 H (97-106) mmol/L Est GFR (Non-Af Amer) 59 L (60-130) mL/min - Exam Constitutional: Present: Alert ENT Exam: Present: hearing grossly normal Neck: Present: supple Breasts: Present: Exam deferred Respiratory: Present: decreased breath sounds, No rales, No wheezing Cardiovascular/Chest: Present: regular rate, rhythm, no JVD, no murmur Abdomen: Present: Normal bowel sounds, soft, nontender, nondistended Extremity: Present: no pedal edema, no calf tenderness Assessment/Plan - Problems/Diagnosis (1) Aspiration pneumonia Problem: Acute Qualifiers: Laterality: bilateral Lung location: lower lobe of lung Narrative: speech therapy- mechanical soft diet with thick nectar fluids (2) Constipation Problem: Acute Qualifiers: Constipation type: slow transit constipation Qualified Code(s): K59.01 - Slow transit constipation (3) Hypernatremia Problem: Acute (4) Down syndrome Problem: Chronic (5) HLD (hyperlipidemia) Problem: Chronic Qualifiers: Hyperlipidemia type: pure hypercholesterolemia Qualified Code(s): E78.00 - Pure hypercholesterolemia, unspecified; E78.0 - Pure hypercholesterolemia (6) HTN (hypertension) Problem: Chronic Qualifiers: Hypertension type: essential hypertension Qualified Code(s): I10 - Essential (primary) hypertension (7) CRF (chronic renal failure) Problem: Chronic Qualifiers: Chronic kidney disease stage: stage 3 (moderate) Qualified Code(s): N18.9 - Chronic kidney disease, unspecified (8) Leukocytosis Problem: Resolved Qualifiers: Leukocytosis type: other Qualified Code(s): D72.828 - Other elevated white blood cell count
[2016-11-21] MEDS ORDERED: CLINDAMYCIN HCL 150 MG CAPSULE PO SCH (08:30)
[2016-11-21] MEDS ORDERED: DEXTROSE 5%-0.5 NORMAL SALINE 1,000 ML IV PRN (08:43)
[2016-11-21] MEDS: AZITHROMYCIN 500 MG in DEXTROSE 5 % IN WATER 250 ML IV SCH ×2 (08:47)
[2016-11-21] MEDS: POLYVINYL ALCOHOL 150 DROP BTL OP SCH ×4 (08:48→20:29)
[2016-11-21] MEDS: CARBAMIDE PEROXIDE 150 DROP BTL OT SCH ×2 (08:48→20:30)
[2016-11-21] MEDS: MINERAL OIL/PETROLATUM,WHITE 454 APPL JAR TP SCH (08:49)
[2016-11-21] MEDS: BISACODYL 5 MG TABLET.DR PO SCH (08:49)
[2016-11-21] MEDS: TRIAMCINOLONE ACETONIDE 5 APPL TUBE DT SCH ×2 (08:49→20:39)
[2016-11-21] MEDS: ESCITALOPRAM OXALATE 10 MG TAB PO SCH (08:50)
[2016-11-21] MEDS: levETIRAcetam 500 MG TABLET PO SCH ×2 (08:50→20:41)
[2016-11-21] MEDS: lamoTRIgine 100 MG TABLET PO SCH ×2 (08:50→20:40)
[2016-11-21] MEDS: POLYETHYLENE GLYCOL 3350 119 GM BTL PO SCH (08:51)
[2016-11-21] MEDS: SIMETHICONE 80 MG TAB.CHEW PO SCH ×4 (08:52→20:40)
[2016-11-21] MEDS: NYSTATIN 60 ML BTL PO SCH ×3 (08:52→17:02)
[2016-11-21] MEDS: CHLORHEXIDINE GLUCONATE 480 ML BTL MM SCH ×3 (08:53→20:28)
[2016-11-21] MEDS: SENNOSIDES/DOCUSATE SODIUM 1 TAB TABLET PO SCH (08:53)
[2016-11-21] MEDS: SODIUM CHLORIDE 45 SPRAY BTL NS SCH ×2 (08:53→20:32)
[2016-11-21] MEDS: ENOXAPARIN SODIUM 30 MG/0.3 ML SYRG SC SCH (15:23)
[2016-11-21] MEDS: ROSUVASTATIN CALCIUM 10 MG TABLET PO SCH (20:30)
[2016-11-22] MEDS: ALBUTEROL SULFATE/IPRATROPIUM 3 ML NEBU IH SCH ×2 (06:08→20:05)
[2016-11-22] MEDS: PIPERACILLIN SODIUM/TAZOBACTAM 3.375 GM in DEXTROSE 5 % IN WATER 100 ML IV SCH ×4 (06:18→15:23)
[2016-11-22] MEDS: AZITHROMYCIN 500 MG in DEXTROSE 5 % IN WATER 250 ML IV SCH ×2 (07:08)
[2016-11-22] MEDS: SUCRALFATE 1 G TABLET PO SCH ×4 (07:10→21:16)
[2016-11-22] MEDS: LEVOTHYROXINE SODIUM 125 MCG TABLET PO SCH (07:10)
[2016-11-22] MEDS: PANTOPRAZOLE SODIUM 40 MG TABLET.EC PO SCH (07:11)
--- NOTE | 2016-11-22 08:15 | PN ---
Subjective - Date and Time Seen Date: 11/22/16 Time: 08:13 Subjective Narrative: patient awake. Smiles with name call. Objective - Review of Systems Generalized/Overall Review: Denies: Chills, Fever EENTM: Reports: No Symptoms Reported Respiratory: Reports: No Symptoms Reported Cardiac: Reports: No Symptoms Reported Abdominal: Reports: No Symptoms Reported Genitourinary Symptoms: Reports: No Symptoms Reported Musculoskeletal Complaints: Reports: No Symptoms Reported Neurological: Reports: No Symptoms Reported Skin: Reports: No Symptoms Reported Endocrine: Reports: No Symptoms Reported Misc: All systems neg except as marked - ROS is unobtainable due to mental retardation. - Vitals Vitals: Last Vital Signs Temp 37.0 C 11/22/16 06:35 Pulse 56 L 11/22/16 06:35 Resp 16 11/22/16 06:35 BP 135/46 11/22/16 06:35 Pulse Ox 100 11/22/16 06:35 - Exam Constitutional: Present: Alert, Elderly, Obese ENT Exam: Present: hearing grossly normal Neck: Present: supple Breasts: Present: Exam deferred Respiratory: Present: decreased breath sounds, No rales, No wheezing Cardiovascular/Chest: Present: regular rate, rhythm, no JVD, no murmur Abdomen: Present: Normal bowel sounds, soft, nontender, nondistended Extremity: Present: no pedal edema, no calf tenderness Assessment/Plan - Problems/Diagnosis (1) Aspiration pneumonia Problem: Acute Qualifiers: Laterality: bilateral Lung location: lower lobe of lung Narrative: Day # 6 IV antibiotics. Discharge planning. (2) Constipation Problem: Acute Qualifiers: Constipation type: slow transit constipation Qualified Code(s): K59.01 - Slow transit constipation Narrative: had BM on 11/19/26. (3) Hypernatremia Problem: Acute Narrative: on D5W (4) Down syndrome Problem: Chronic (5) HLD (hyperlipidemia) Problem: Chronic Qualifiers: Hyperlipidemia type: pure hypercholesterolemia Qualified Code(s): E78.00 - Pure hypercholesterolemia, unspecified; E78.0 - Pure hypercholesterolemia (6) HTN (hypertension) Problem: Chronic Qualifiers: Hypertension type: essential hypertension Qualified Code(s): I10 - Essential (primary) hypertension (7) CRF (chronic renal failure) Problem: Chronic Qualifiers: Chronic kidney disease stage: stage 3 (moderate) Qualified Code(s): N18.3 - Chronic kidney disease, stage 3 (moderate) (8) Leukocytosis Problem: Resolved Qualifiers: Leukocytosis type: other Qualified Code(s): D72.828 - Other elevated white blood cell count
[2016-11-22] MEDS: POLYVINYL ALCOHOL 150 DROP BTL OP SCH ×4 (09:09→21:17)
[2016-11-22] MEDS: CARBAMIDE PEROXIDE 150 DROP BTL OT SCH ×2 (09:10→21:17)
[2016-11-22] MEDS: SENNOSIDES/DOCUSATE SODIUM 1 TAB TABLET PO SCH (09:11)
[2016-11-22] MEDS: ESCITALOPRAM OXALATE 10 MG TAB PO SCH (09:12)
[2016-11-22] MEDS: SIMETHICONE 80 MG TAB.CHEW PO SCH ×4 (09:12→21:16)
[2016-11-22] MEDS: BISACODYL 5 MG TABLET.DR PO SCH (09:12)
[2016-11-22] MEDS: levETIRAcetam 500 MG TABLET PO SCH ×2 (09:12→21:16)
[2016-11-22] MEDS: lamoTRIgine 100 MG TABLET PO SCH ×2 (09:12→21:16)
[2016-11-22] MEDS: TRIAMCINOLONE ACETONIDE 5 APPL TUBE DT SCH ×2 (09:13→21:17)
[2016-11-22] MEDS: MINERAL OIL/PETROLATUM,WHITE 454 APPL JAR TP SCH (09:13)
[2016-11-22] MEDS: POLYETHYLENE GLYCOL 3350 119 GM BTL PO SCH (09:14)
[2016-11-22] MEDS: Lytes/Yerba Santa 60 APPL BTL MM PRN ×2 (09:15→09:19)
[2016-11-22] MEDS: CHLORHEXIDINE GLUCONATE 480 ML BTL MM SCH ×3 (09:15→19:34)
[2016-11-22] MEDS: SODIUM CHLORIDE 45 SPRAY BTL NS SCH ×2 (09:16→21:17)
[2016-11-22] MEDS: NYSTATIN 60 ML BTL PO SCH ×3 (09:17→16:41)
[2016-11-22] MEDS: Lytes/Yerba Santa 240 APPL BTL MM SCH ×4 (09:24→21:17)
[2016-11-22] MEDS: ENOXAPARIN SODIUM 30 MG/0.3 ML SYRG SC SCH (15:23)
[2016-11-22] MEDS: OLANZapine 5 MG TABLET PO SCH (21:16)
[2016-11-22] MEDS: ROSUVASTATIN CALCIUM 10 MG TABLET PO SCH (21:17)
[2016-11-22] MEDS: CLINDAMYCIN HCL 150 MG CAPSULE PO SCH (23:25)
[2016-11-23 06:04] LABS: Hematocrit 33.1 % (42.0-52.0); Hemoglobin 10.8 gm/dL (13.5-18.0); Mean Cell Volume 91.2 fl (78-100); Mean Corpuscular Hemoglobin 29.8 pg (27-31); Mean Corpuscular Hgb Conc 32.6 g/dl (32-36); Mean Platelet Volume 10.1 fl (6.0-9.5); Neutrophil # 1.8 K/mm3 (1.3-6.0); Neutrophil % 47.2 % (42-75.0); Platelet Count 155 K/mm3 (150-450); Red Blood Count 3.63 M/mm3 (4.7-6.0); Red Cell Distribution Width 15.7 % (11.5-14.0); White Blood Count 3.9 K/mm3 (4.0-10.5)
[2016-11-23 06:11] LABS: Anion Gap 11.3 mmol/L (6.8-13.8); BUN/Creatinine Ratio 6.4 (9.0-21.6); Calcium * 7.9 mg/dL (7.9-10.9); Carbon Dioxide 28.3 mmol/L (24-32.6); Estimated Creat Clear 35.3; Potassium 3.6 mmol/L (3.4-4.6)
[2016-11-23] MEDS: SUCRALFATE 1 G TABLET PO SCH ×4 (06:40→21:05)
[2016-11-23] MEDS: CLINDAMYCIN HCL 150 MG CAPSULE PO SCH ×3 (06:40→22:49)
[2016-11-23] MEDS: LEVOTHYROXINE SODIUM 125 MCG TABLET PO SCH (06:42)
[2016-11-23] MEDS: PANTOPRAZOLE SODIUM 40 MG TABLET.EC PO SCH (06:42)
[2016-11-23] MEDS: ALBUTEROL SULFATE/IPRATROPIUM 3 ML NEBU IH SCH ×2 (07:14→19:12)
[2016-11-23] MEDS ORDERED: FUROSEMIDE 80 MG TABLET PO ONE (07:35)
--- NOTE | 2016-11-23 07:57 | PN ---
Subjective - Date and Time Seen Date: 11/23/16 Time: 07:51 Subjective Narrative: Patient eating his breakfast. Good appetite as per watcher. CXR shows pulmonary congestion. Objective - Review of Systems Generalized/Overall Review: Reports: No Symptoms Reported, Fever EENTM: Reports: No Symptoms Reported Respiratory: Reports: No Symptoms Reported Cardiac: Reports: No Symptoms Reported Abdominal: Reports: No Symptoms Reported Genitourinary Symptoms: Reports: No Symptoms Reported Musculoskeletal Complaints: Reports: No Symptoms Reported Neurological: Reports: No Symptoms Reported Skin: Reports: No Symptoms Reported Endocrine: Reports: No Symptoms Reported Misc: All systems neg except as marked - Unobtainable due to mental retardation - Vitals Vitals: Last Vital Signs Temp 36.8 C 11/23/16 06:36 Pulse 59 L 11/23/16 07:24 Resp 18 11/23/16 07:24 BP 128/69 11/23/16 06:36 Pulse Ox 95 11/23/16 07:14 - Abnormal Lab Findings Abnormal Lab Findings: Abnormal Lab Results 11/23/16 11/23/16 Range/Units 05:25 05:25 WBC 3.9 L (4.0-10.5) K/mm3 RBC 3.63 L (4.7-6.0) M/mm3 Hgb 10.8 L (13.5-18.0) gm/dL Hct 33.1 L (42.0-52.0) % RDW 15.7 H (11.5-14.0) % MPV 10.1 H (6.0-9.5) fl Immature Gran % (Auto) 2.30 H (0.001-0.429) % Immature Gran # (Auto) 0.09 H (0.000-0.0310) K/mm3 Eosinophils % 4.9 H (0.0-3.0) % Sodium 144 H (132-142) mmol/L Plasma Sodium 144 H (130-142) mmol/L Chloride 108 H (97-106) mmol/L Est GFR (Non-Af Amer) 53 L (60-130) mL/min BUN/Creatinine Ratio 6.4 L (9.0-21.6) - Exam Constitutional: Present: Alert ENT Exam: Present: hearing grossly normal Neck: Present: supple Breasts: Present: Exam deferred Respiratory: Present: decreased breath sounds, rales, No wheezing Cardiovascular/Chest: Present: regular rate, rhythm, no JVD, no murmur Abdomen: Present: Normal bowel sounds, soft, nontender, nondistended Extremity: Present: no pedal edema, no calf tenderness Assessment/Plan - Problems/Diagnosis (1) Aspiration pneumonia Problem: Acute Qualifiers: Laterality: bilateral Lung location: lower lobe of lung Narrative: Had 6 days of IV antibiotics. Clindamycin started. Follow up CXR shows pulmonarycongestion likely due to overload with IVF. possible discharge tomorrow. (2) Constipation Problem: Resolved Qualifiers: Constipation type: slow transit constipation Qualified Code(s): K59.01 - Slow transit constipation Narrative: had another BM last night. (3) Hypernatremia Problem: Acute (4) Down syndrome Problem: Chronic (5) HLD (hyperlipidemia) Problem: Chronic Qualifiers: Hyperlipidemia type: pure hypercholesterolemia Qualified Code(s): E78.00 - Pure hypercholesterolemia, unspecified; E78.0 - Pure hypercholesterolemia (6) HTN (hypertension) Problem: Chronic Qualifiers: Hypertension type: essential hypertension Qualified Code(s): I10 - Essential (primary) hypertension (7) CRF (chronic renal failure) Problem: Chronic Qualifiers: Chronic kidney disease stage: stage 3 (moderate) Qualified Code(s): N18.3 - Chronic kidney disease, stage 3 (moderate) (8) Leukocytosis Problem: Resolved Qualifiers: Leukocytosis type: other Qualified Code(s): D72.828 - Other elevated white blood cell count (9) Pulmonary congestion Problem: Acute Narrative: secondary to fluid overload. IVF d/c yesterday. will give PO Lasix 80 mg x 1. IV line out.
[2016-11-23] MEDS: POLYVINYL ALCOHOL 150 DROP BTL OP SCH ×4 (08:17→21:06)
[2016-11-23] MEDS: CARBAMIDE PEROXIDE 150 DROP BTL OT SCH ×2 (08:17→21:03)
[2016-11-23] MEDS: NYSTATIN 60 ML BTL PO SCH ×3 (08:18→16:05)
[2016-11-23] MEDS: SENNOSIDES/DOCUSATE SODIUM 1 TAB TABLET PO SCH (08:18)
[2016-11-23] MEDS: SIMETHICONE 80 MG TAB.CHEW PO SCH ×4 (08:19→21:05)
[2016-11-23] MEDS: CHLORHEXIDINE GLUCONATE 480 ML BTL MM SCH ×3 (08:19→21:02)
[2016-11-23] MEDS: Lytes/Yerba Santa 60 APPL BTL MM PRN ×3 (08:19→13:22)
[2016-11-23] MEDS: BISACODYL 5 MG TABLET.DR PO SCH (08:20)
[2016-11-23] MEDS: MINERAL OIL/PETROLATUM,WHITE 454 APPL JAR TP SCH (08:20)
[2016-11-23] MEDS: lamoTRIgine 100 MG TABLET PO SCH ×2 (08:21→21:06)
[2016-11-23] MEDS: ESCITALOPRAM OXALATE 10 MG TAB PO SCH (08:21)
[2016-11-23] MEDS: POLYETHYLENE GLYCOL 3350 119 GM BTL PO SCH (08:21)
[2016-11-23] MEDS: levETIRAcetam 500 MG TABLET PO SCH ×2 (08:21→21:05)
[2016-11-23] MEDS: TRIAMCINOLONE ACETONIDE 5 APPL TUBE DT SCH ×2 (08:21→21:03)
[2016-11-23] MEDS: Lytes/Yerba Santa 240 APPL BTL MM SCH ×4 (08:22→21:04)
[2016-11-23] MEDS: SODIUM CHLORIDE 45 SPRAY BTL NS SCH ×2 (08:22→21:04)
[2016-11-23] MEDS ORDERED: POTASSIUM CHLORIDE 20 MEQ TABLET.SA PO ONE (12:50)
[2016-11-23] MEDS: ENOXAPARIN SODIUM 30 MG/0.3 ML SYRG SC SCH (16:04)
[2016-11-23] MEDS: OLANZapine 5 MG TABLET PO SCH (21:05)
[2016-11-23] MEDS: ROSUVASTATIN CALCIUM 10 MG TABLET PO SCH (21:06)
[2016-11-24 06:21] LABS: Anion Gap 9.4 mmol/L (6.8-13.8); BUN/Creatinine Ratio 8.7 (9.0-21.6); Calcium * 8.2 mg/dL (7.9-10.9); Estimated Creat Clear 33.2; Potassium 3.4 mmol/L (3.4-4.6)
[2016-11-24] MEDS: ALBUTEROL SULFATE/IPRATROPIUM 3 ML NEBU IH SCH (07:17)
[2016-11-24] MEDS: SUCRALFATE 1 G TABLET PO SCH ×3 (07:27→11:35)
[2016-11-24] MEDS: PANTOPRAZOLE SODIUM 40 MG TABLET.EC PO SCH (07:27)
[2016-11-24] MEDS: LEVOTHYROXINE SODIUM 125 MCG TABLET PO SCH (07:27)
[2016-11-24] MEDS: CLINDAMYCIN HCL 150 MG CAPSULE PO SCH (07:28)
[2016-11-24] MEDS: lamoTRIgine 100 MG TABLET PO SCH (08:06)
[2016-11-24] MEDS: ESCITALOPRAM OXALATE 10 MG TAB PO SCH (08:06)
[2016-11-24] MEDS: SENNOSIDES/DOCUSATE SODIUM 1 TAB TABLET PO SCH (08:07)
[2016-11-24] MEDS: levETIRAcetam 500 MG TABLET PO SCH (08:07)
[2016-11-24] MEDS: SIMETHICONE 80 MG TAB.CHEW PO SCH ×2 (08:07→13:43)
[2016-11-24] MEDS: SODIUM CHLORIDE 45 SPRAY BTL NS SCH (08:10)
[2016-11-24] MEDS: POLYVINYL ALCOHOL 150 DROP BTL OP SCH ×2 (08:11→13:42)
[2016-11-24] MEDS: POLYETHYLENE GLYCOL 3350 119 GM BTL PO SCH (08:13)
[2016-11-24] MEDS: CARBAMIDE PEROXIDE 150 DROP BTL OT SCH (08:15)
[2016-11-24] MEDS: BISACODYL 5 MG TABLET.DR PO SCH (08:16)
[2016-11-24] MEDS: TRIAMCINOLONE ACETONIDE 5 APPL TUBE DT SCH (09:27)
[2016-11-24] MEDS: NYSTATIN 60 ML BTL PO SCH ×2 (09:28→13:43)
[2016-11-24] MEDS: Lytes/Yerba Santa 240 APPL BTL MM SCH ×2 (09:28→13:43)
[2016-11-24] MEDS: CHLORHEXIDINE GLUCONATE 480 ML BTL MM SCH ×2 (09:29→13:43)
[2016-11-24 10:33] VITALS: BP 138/68
[2016-11-24] MEDS: MINERAL OIL/PETROLATUM,WHITE 454 APPL JAR TP SCH (11:33)
--- NOTE | 2016-11-24 14:10 | DS ---
(1) Bibasilar pneumonia Problem: Acute (2) Fecal retention Diagnosis(s): --> abdominal distension. Problem: Chronic Qualifiers: Constipation type: unspecified constipation type Qualified Code(s): K59.00 - Constipation, unspecified (3) Down's Syndrome with mental retardation Problem: Chronic (4) Constipation Problem: Acute Qualifiers: Constipation type: other constipation type Qualified Code(s): K59.09 - Other constipation (5) Seizure disorder Problem: Chronic (6) GERD (gastroesophageal reflux disease) Problem: Chronic (7) Anxiety and depression Problem: Chronic (8) Hypothyroidism Problem: Chronic Qualifiers: Hypothyroidism type: unspecified Qualified Code(s): E03.9 - Hypothyroidism , unspecified Description of Stay: DATE OF ADMISSION: 11/17/2016. DATE OF DISCHARGE: 11/24/2016. DIAGNOSTICS: CT ABDOMEN/PELVIS W/O 11/18/2016. HOSPITAL COURSE: Patient is a 71-year-old WM with a H/O MR due to Down's syndrome, HLD, hypothyroidism, seizure disorder, CKD stage III, chronic constipation, BPH who was sent from the residential for evaluation of "gurgling sounds "and shortness of breath noticed by the nursing staff. Vital signs in the ER were temp 39.1C , HR 105/m, RR 28/m pulse ox 85% on RA. CXR showed bibasilar infiltrates improved from last time. WBC 14.2 K. Influenza titers were negative. Patient was given furosemide 80 mg IV 1, aztreonam IV 1 and levofloxacin 750 mg IV 1 in the ER and and was admitted into observation. Patient had abdominal distention w/pain on examination and a DX of partial PSBO was entertained. Patient underwent CT abdomen/pelvis W/O on 11/18/2016. " This shows bilateral air space consolidation in the bases with LT sided pleural effusion, small hiatal hernia, extensive fecal retention throughout the colon w/ o evidence of intestinal obstruction. There is circumferential bladder wall thickening which is likely due to chronic outflow obstruction given the size of the enlarged prostrate/cystitis. DJD present." Patient is nonverbal and nonambulatory. Patient was Rxed for constipation with resolution in symptoms. Treated for pneumonia with cefoxitin IV and azithromycin IV with improvement. CXR on 11/23/2016 showed possible CHF and worsening of infiltrates most likely secondary to fluid overload[IV fluids] however patient was clinically better. He was discharged in a stable condition on 11/24/2016 to be followed by his PCP. More than 30 minutes was spent in examination of patient, reconciliation of medications, preparation and dictation of discharge summary. Procedures Performed: none Results and Findings: Laboratory Tests 11/17/16 11/21/16 11/23/16 15:00 05:12 05:25 WBC 8.2 4.5 D 3.9 L Hgb 14.5 11.0 L 10.8 L Hct 45.5 33.9 L 33.1 L Plt Count 175 145 L 155 Laboratory Tests 11/17/16 11/20/16 11/23/16 15:00 05:15 05:25 Plasma Sodium 141 143 H 144 H Potassium 4.2 4.0 3.6 Chloride 105 110 H 108 H Carbon Dioxide 29.1 27.5 28.3 BUN 24 H D 19 9 Creatinine 1.50 H 1.43 H 1.40 Est GFR (Non-Af Amer) 49 L 52 L D 53.0 Random Glucose 128 H 92 87 Calcium Adj for Albumin 8.4 9.1 Total Bilirubin 0.3 0.3 AST 36 22 ALT 45 21 Alkaline Phosphatase 146 84 B-Natriuretic Peptide 91 Total Protein 8.0 6.3 Albumin 3.4 2.3 L Amylase 117 H Lipase 175 Influenza Type A Ag negative Influenza Type B Ag negative Discharge Disposition: Other HealthCare facility Disposition: [facility] Home Health Condition: Undetermined Discharge Activity: Activity as tolerated Discharge Diet: Other - diet as tolerated, aspiration precautions Referrals: Kemar Alegria MD [Primary Care Provider] - Problem Oriented Discharge Instructions to Patient/Family: Heart Failure, Easy- to-Read, Community-Acquired Pneumonia, Adult, [id number] Additional Patient Instructions (free text): Contact Lorna Cheatham [facility] at discharge: [phone] ext [phone], 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 Resume [facility] Home Health- fax discharge instructions and medications. Call nursing report to ext [phone]. Call any new medications into [facility] at [phone]. Follow up with in 2-3 weeks on November at 2:30 PM Aspiration precautions. Oral care after meals and at bedtime. Complete Home Medications List: Complete Home Medication List: ALPRAZolam [Xanax] 0.5 mg PO TID PRN 12/20/16 Acetaminophen [Tylenol] 1,000 mg PO Q6H PRN 12/20/16 Albuterol Sulfate/Ipratropium [Duoneb 2.5-0.5MG/3ML Soln] 3 ml IH QID PRN Bisacodyl [Dulcolax Suppository] 10 mg RC DAILY PRN 12/20/16 Carbamide Peroxide [Debrox] 5 drop OT BID 12/20/16 Chlorhexidine Gluconate [Periogard Oral Rinse 0.12%] 15 ml MM BID 12/20/16 Escitalopram Oxalate [Lexapro] 10 mg PO DAILY 12/20/16 Esomeprazole Magnesium [Nexium] 40 mg PO DAILY 12/20/16 Furosemide [Lasix] 20 mg PO DAILY 12/20/16 HYDROcodone/ACETAMINOPHEN [[place] 5-325] 1 tab PO Q4H PRN 12/20/16 Hydrophilic Ointment [Aquaphilic Ointment] 1 appl TP PRN PRN 12/20/16 Lanolin Alcohol/Mo/W.pet/[place] [Eucerin Creme] 1 appl TP DAILY 12/20/16 Levothyroxine Sodium [Synthroid] 125 mcg PO DAILY 12/20/16 Nystatin [Mycostatin Cream] 1 appl TP BID 12/20/16 OLANZapine [Zyprexa] 20 mg PO HS 12/20/16 Polyethylene Glycol 3350 [Miralax] 17 gm PO DAILY 12/20/16 Polyvinyl Alcohol [Artificial Tears] 2 drop OP QID PRN 12/20/16 Saliva Substitute Combo No.9 [Biotene] 1 appl MM PCHS 12/20/16 Simethicone [Mylicon Drops] 20 ml PO TID PRN 12/20/16 Sodium Chloride [Saline Mist] 1 spray NS BID 12/20/16 guaiFENesin/DEXTROMETHORPHAN [Tussin Dm Syrup] 10 ml PO Q4H PRN 12/20/16 lamoTRIgine [Lamictal] 100 mg PO BID 12/20/16 levETIRAcetam [Keppra] 1,000 mg PO HS 12/20/16 levETIRAcetam [Keppra] 500 mg PO DAILY 12/20/16 Clindamycin HCl [Cleocin HCl] 600 mg PO TID 7 Days 12/21/16 Levofloxacin [Levaquin] 500 mg PO DAILY 9 Days 12/21/16 Saccharomyces [place]oulardii [Florastor] 250 mg PO DAILY 10 Days 12/21/16
--- NOTE | 2016-12-04 19:01 | PN ---
Subjective - Date and Time Seen Date: 11/18/16 Time: 10:00 Subjective Narrative: Improving a little. O2 sats in the high 90's on nasal cannula oxygen. Record reviewed. I suspect this may be aspiration pneumonia. Objective - Review of Systems Generalized/Overall Review: Reports: No Symptoms Reported - poor historian - Vitals Vitals: Last Vital Signs Selected Entries 11/18/16 07:54 Temperature 37.0 C Temperature Oral Source Pulse Rate 75 Respiratory 20 Rate Blood Pressure 118/41 O2 Sat by Pulse 90 Oximetry Oxygen Delivery Nasal Cannula Method Oxygen Flow 2 Rate - Exam Constitutional: Present: Alert, Cooperative ENT Exam: Present: normal ENT inspection Neck: Present: normal inspection Respiratory: Present: no respiratory distress, rhonchi Cardiovascular/Chest: Present: regular rate, rhythm, no murmur Abdomen: Present: Normal bowel sounds, soft, nontender, no rebound tenderness, no hepatospenomegaly, no masses, distended Extremity: Absent: pedal edema Skin Exam: Present: normal color, warm/dry, no cyanosis Appearance: Present: appropriate appearance, neat Assessment/Plan Plan Narrative: Follow labs. Continue antibiotics. - Problems/Diagnosis (1) Aspiration pneumonia Problem: Acute Qualifiers: Laterality: bilateral Lung location: lower lobe of lung (2) Constipation Problem: Resolved Qualifiers: Constipation type: slow transit constipation Qualified Code(s): K59.01 - Slow transit constipation (3) Hypernatremia Problem: Acute (4) Hyperkalemia Problem: Acute (5) Pneumonia Problem: Acute Qualifiers: Pneumonia type: due to unspecified organism Laterality: bilateral Lung location: lower lobe of lung Qualified Code(s): J18.9 - Pneumonia, unspecified organism (6) Down syndrome Problem: Chronic (7) GERD (gastroesophageal reflux disease) Problem: Chronic Qualifiers: Esophagitis presence: without esophagitis Qualified Code(s): K21.9 - Gastro -esophageal reflux disease without esophagitis (8) HLD (hyperlipidemia) Problem: Chronic Qualifiers: Hyperlipidemia type: pure hypercholesterolemia Qualified Code(s): E78.00 - Pure hypercholesterolemia, unspecified; E78.0 - Pure hypercholesterolemia (9) HTN (hypertension) Problem: Chronic Qualifiers: Hypertension type: essential hypertension Qualified Code(s): I10 - Essential (primary) hypertension (10) Seizures Problem: Chronic (11) Chronic renal failure, stage 3 (moderate) Problem: Chronic (12) Mental retardation Problem: Chronic
== END 2016-11-24 15:50 | disposition home health service (06) | DRG 194 ==
LOC: ER 13:54 → MS 17:05 → OBSVTOIN 11-18 10:45
PROVIDERS: ADMIT Allergy & Immunology; ATTEND Internal Medicine
PROC: 4A033R1 Measurement of Arterial Saturation, Peripheral, Percutaneous Approach (ICD-10-PCS; principal; 2016-11-18)
DX: J18.9 Pneumonia, unspecified organism (principal); E87.0 Hyperosmolality and hypernatremia; E87.6 Hypokalemia; K59.01 Slow transit constipation; E78.00 Pure hypercholesterolemia, unspecified; I12.9 Hypertensive chronic kidney disease with stage 1 through stage 4 chronic kidney disease, or unspecified chronic kidney disease; N18.3 Chronic kidney disease, stage 3 (moderate); F79 Unspecified intellectual disabilities; Q90.9 Down syndrome, unspecified
CPT/HCPCS: 36415; 36600; 71010; 74020; 74176; 80048; 80053; 82150; 82803; 83690; 83880; 85007; 85025; 87040; 87081; 87400; 92526; 92610; 94640; 96365; 99283; G0378

== ENCOUNTER 2016-12-18 13:23 | Emergency (ER) | payer MEDICARE, OTHER ==
[2016-12-18 14:29] LABS: Hematocrit 40.1 % (42.0-52.0); Hemoglobin 12.6 gm/dL (13.5-18.0); Mean Cell Volume 95.2 fl (78-100); Mean Corpuscular Hemoglobin 29.9 pg (27-31); Mean Corpuscular Hgb Conc 31.4 g/dl (32-36); Mean Platelet Volume 10.2 fl (6.0-9.5); Neutrophil # 7.4 K/mm3 (1.3-6.0); Neutrophil % 77.4 % (42-75.0); Platelet Count 168 K/mm3 (150-450); Red Blood Count 4.21 M/mm3 (4.7-6.0); Red Cell Distribution Width 15.6 % (11.5-14.0); White Blood Count 9.6 K/mm3 (4.0-10.5)
[2016-12-18 14:42] LABS: Albumin * 2.8 gm/dl (3.4-5.0); Anion Gap 9.8 mmol/L (6.8-13.8); BUN/Creatinine Ratio 13.8 (9.0-21.6); Bilirubin, Total 0.4 mg/dL (0.0-1.1); Ca. Corrected For Albumin 9.1 mg/dL (8.4-10.2); Calcium * 8.5 mg/dL (7.9-10.9); Carbon Dioxide 32.4 mmol/L (24-32.6); Potassium 4.2 mmol/L (3.4-4.6); Total Protein 7.4 gm/dL (6.2-8.2)
[2016-12-18] MEDS ORDERED: MAGNESIUM CITRATE 300 ML BTL PO ONE (15:14)
--- NOTE | 2016-12-18 15:25 | ERNOTE ---
Abdominal HPI - General Chief Complaint: Constipation Time Seen by Provider: 12/18/16 15:01 Source: other Exam Limitations: clinical condition, physical impairment - Immun/Allergies/Home Medications Immunizatons: IMMUNIZATION HX Immunizations Up to Date Yes History of Influenza Vaccine No Hx Pneumococcal Vaccination Yes Allergies/Adverse Reactions: Allergies soap Allergy (Severe, Verified 12/18/16 13:34) Hives amoxicillin [Amoxicillin] Allergy (Verified 12/18/16 13:34) prednisone Allergy (Verified 12/18/16 13:34) tamsulosin HCl [From Flomax] Allergy (Verified 12/18/16 13:34) Home Medications: HOME MEDICATIONS Albuterol Sulfate/Ipratropium [Duoneb 2.5-0.5MG/3ML Soln] 3 ml IH BID 11/08/15 [ Last Taken Unknown] Chlorhexidine Gluconate [Periogard Oral Rinse 0.12%] 480 ml MM PC 11/08/15 [ Last Taken 11/08/15] Escitalopram Oxalate [Lexapro] 10 mg PO DAILY 11/08/15 [Last Taken 11/08/15] Esomeprazole Magnesium [Nexium] 40 mg PO DAILY 11/08/15 [Last Taken 11/08/15] Ipratropium [place] [Atrovent] 0.5 mg IH QID 11/08/15 [Last Taken 11/08/15] Lamotrigine [Lamictal] 100 mg PO BID 11/08/15 [Last Taken 11/08/15] Lanolin Alcohol/Mo/W.pet/[place] [Eucerin Creme] 57 gm TP DAILY 11/08/15 [Last Taken 11/08/15] Levothyroxine Sodium [Tirosint] 125 mcg PO DAILY 11/08/15 [Last Taken 11/08/15] OLANZapine [Zyprexa] 20 mg PO HS 11/08/15 [Last Taken 11/07/15] Polyethylene Glycol 3350 [Miralax] 17 gm PO DAILY 11/08/15 [Last Taken 11/08/15] Rosuvastatin Calcium [Crestor] 10 mg PO HS 11/08/15 [Last Taken 11/07/15] Sodium Chloride [Saline Mist] 45 ml NS BID 11/08/15 [Last Taken 11/08/15] levETIRAcetam [Keppra] 1,000 mg PO HS 11/08/15 [Last Taken 11/07/15] levETIRAcetam [Keppra] 500 mg PO DAILY 11/08/15 [Last Taken 11/08/15] Nystatin 1,000,000 unit PO TID #1 bottle 12/03/15 [Last Taken Unknown] ALPRAZolam [Xanax] 0.25 mg PO TID PRN 08/07/16 [Last Taken Unknown] Albuterol Sulfate [Proair Hfa] 1 - 2 puff IH Q4H PRN 08/07/16 [Last Taken Unknown] HYDROcodone/ACETAMINOPHEN [Lortab 5-325 mg Tablet] 1 each PO Q4H PRN 08/07/16 [ Last Taken Unknown] Hydrophilic Ointment [Aquaphilic Ointment] 1 appl TP PRN PRN 08/07/16 [Last Taken Unknown] Lytes/[place] [M[place] Solution] 1 appl MM PRN PRN 08/07/16 [Last Taken Unknown] Polyvinyl Alcohol [Artificial Tears] 2 drop OP QID 08/07/16 [Last Taken Unknown] Saliva Substitute Combo No.9 [Biotene] 1 appl MM QID 08/07/16 [Last Taken Unknown] Triamcinolone Acetonide [Kenalog in [place]] 1 appl DT BID 08/07/16 [Last Taken Unknown] guaiFENesin [Robitussin] 10 ml PO Q4H 08/07/16 [Last Taken Unknown] Acetaminophen [Tylenol] 1,000 mg PO Q6H PRN 10/16/16 [Last Taken Unknown] Sucralfate [Carafate] 1 gm PO ACHS 10/16/16 [Last Taken Unknown] Carbamide Peroxide [Debrox] 15 ml OT Q48H #.1 drops 11/24/16 [Last Taken Unknown ] Cholecalciferol (Vitamin D3) [Vitamin D3] 2,400 unit PO DAILY #1 bottle [Last Taken Unknown] Clindamycin HCl [Cleocin] 300 mg PO Q8H #9 capsule 11/24/16 [Last Taken Unknown] Simethicone [Mylicon Drops] 40 mg PO TID #1 btl 11/24/16 [Last Taken Unknown] Bisacodyl [Dulcolax Suppository] 10 mg RC DAILY PRN #10 supp.rect 12/18/16 [ Last Taken Unknown] - History of Present Illness Narrative: Patient is mentally challenged, has dementia and is not talking. Per caregiver he has not had a bowel movement in five days but has not received any prn medications for that as the prescription has . Since yesterday he has not been himself and has taken very little by mouth. He has had multiple hospitalizations recently for pneumonia. Date (Duration): 12/13/16 Review of Systems - Narrative Narrative: limited by dementia - Review of Systems Constitutional: Absent: recent illness, fever Gastrointestinal/Abdominal: Present: constipation. Absent: vomiting - Patient's Past Medical History Patient History - Medical: Alzheimer's Disease, Anxiety, Depression, GERD, Hypothyroidism, Renal Failure, Seizures, Other Patient History - Cardiac/Respiratory: CHF, Hyperlipidemia Patient History - Cancer: No Hx of Cancer Patient History - Surgical Procedures: Cataracts, T & A Patient History - Other: None - Family History Mother Family History - Medical: Family History - Cardiac/Respiratory: Coronary Heart Disease Father Family History - Medical: Family History - Cardiac/Respiratory: Coronary Heart Disease - Social History Living Situations: shelter Abuse History: No History of abuse Psych History: No pertinent hx Alcohol Use: none Drug Use: none - Immunizations Immunizations Up to Date: Yes Hx Pneumococcal Vaccination: Yes History of Influenza Vaccine: No Physical Exam - Physical Exam General Appearance: Present: wd/wn, alert, no apparent distress Eye Exam: Normal inspection: bilateral, PERRL: bilateral Ears, Nose, Throat: Present: normal pharynx, dry mucous membranes Neck: Present: normal inspection Respiratory: Present: no respiratory distress, normal breath sounds, chest nontender, lungs clear Cardiovascular/Chest: Present: regular rate, rhythm, no murmur Gastrointestinal/Abdominal: Present: normal bowel sounds, nontender, nondistended, soft Neurological Exam: Present: alert Skin Exam: Present: normal color, warm/dry ED Progress - Results and Orders Patient's Lab Results:: I have reviewed the patient's lab results. - Vital Signs Patient's Vital Signs:: I have reviewed the patient's vital signs. Vital Signs: Vital Signs 12/18/16 12/18/16 12/18/16 13:28 14:11 14:30 Temperature 36.4 C L Pulse Rate 58 L 62 Respiratory 16 12 Rate Blood Pressure 102/59 128/83 122/59 O2 Sat by Pulse 97 Oximetry - X-Ray X-Ray #1 X-Ray: abdomen - stool retention, no obstruction Interpretation: Reviewed by me - Progress/Reassessment Chief Complaint: Constipation Progress Note-Subjective: 12/18/16 15:10 discussed with caregiver that as he has no fever, normal O2sat, normal WBC unlikely to have pneumonia, constipation most likely, will try to minimize unpleasant test and try home treatment for constipation first Departure - Departure Clinical Impression: Constipation Qualifiers: Constipation type: other constipation type Qualified Code(s): K59.09 - Other constipation Disposition: Home self-care Condition: Fair Instructions: Constipation, Adult, [id number] Additional Instructions: use the dulcolax as prescribed and try the magnesium citrate if you have no results by tomorrow call Dr Alegria for further instruction Referrals: Kemar Alegria MD [Primary Care Provider] - Prescriptions: Bisacodyl [Dulcolax Suppository] 10 mg RC DAILY PRN #10 supp.rect PRN Reason: Constipation
--- OUTSIDE RECORDS SUMMARY | 2016-12-18 15:34 | XMS REPORT | Continuity of Care Document ---
:1945 Author Organization [facility] ([facility]) Address [address] [place] [address] Phone [phone] Care Team Providers Name Role Phone Jared Copeland Primary Care Provider [phone] Source Comments This disclosure is being made pursuant to the Care Everywhere program, applicable federal and state laws, and may not contain all informaitonavailable regarding this patient.[facility] ([facility]) Active Allergies and Adverse Reactions Allergen [...] 3350 (MIRALAX) 17 times daily. gram/dose powder [place]-3 Fatty Take 1,000 mg by Active Acids-Vitamin [...] rectally as Active PHOS,DI-BA (FLEET ENEMA needed. MT) [id number]. Take by mouth as Active Sup 11 [...] Taken Blood Pressure 126/60 09/28/2011 2:02 PM [facility] Pulse 64 09/28/2011 2:02 PM [facility] Temperature 35.4 C (95.7 F) 03/09/2011 10:08 AM CDT Respiratory Rate - - Height 1.603 m (5' 3.11") 03/25/2008 9:25 AM CDT Weight 84.505 kg (186 lb 4.8 oz) 09/28/2011 2:02 PM [facility] Body Mass Index 32.89 09/28/2011 2:02 PM [facility] Oxygen Saturation - - Plan of Care [...]
[2016-12-18] MEDS ORDERED: MAGNESIUM CITRATE 300 ML BTL ONE (15:59)
[2016-12-18 16:12] VITALS: BP 131/54
== END 2016-12-18 16:22 | disposition home or self-care (01) ==
LOC: ER 13:23
DX: K59.09 Other constipation (principal)

== ENCOUNTER 2016-12-20 09:37 | Observation (INO) | payer MEDICARE, OTHER ==
[2016-12-20 10:33] LABS: Hematocrit 39.3 % (42.0-52.0); Hemoglobin 12.3 gm/dL (13.5-18.0); Mean Cell Volume 95.9 fl (78-100); Mean Corpuscular Hgb Conc 31.3 g/dl (32-36); Mean Platelet Volume 10.8 fl (6.0-9.5); Neutrophil # 3.5 K/mm3 (1.3-6.0); Neutrophil % 70.1 % (42-75.0); Platelet Count 174 K/mm3 (150-450); Red Cell Distribution Width 16.2 % (11.5-14.0); White Blood Count 4.9 K/mm3 (4.0-10.5)
[2016-12-20] MEDS ORDERED: NORMAL SALINE 1,000 ML IV ONE (10:48)
--- NOTE | 2016-12-20 10:52 | ERNOTE ---
Date of Service: 12/20/16 Time Seen by Provider: 12/20/16 10:16 Stated Complaint: SOB Source: patient Exam Limitations: no limitations Immunizations: IMMUNIZATION HX Immunizations Up to Date Yes History of Influenza Vaccine Yes Hx Pneumococcal Vaccination Yes Allergies/Adverse Reactions: Allergies soap Allergy (Severe, Verified 12/20/16 16:16) Hives amoxicillin [Amoxicillin] Allergy (Verified 12/20/16 16:16) prednisone Allergy (Verified 12/20/16 16:16) tamsulosin HCl [From Flomax] Allergy (Verified 12/20/16 16:16) Home Medications: HOME MEDICATIONS ALPRAZolam [Xanax] 0.5 mg PO TID PRN 12/20/16 [Last Taken Unknown] Acetaminophen [Tylenol] 1,000 mg PO Q6H PRN 12/20/16 [Last Taken Unknown] Albuterol Sulfate [Proair Hfa] 1 puff IH QID PRN 12/20/16 [Last Taken Unknown] Albuterol Sulfate/Ipratropium [Duoneb 2.5-0.5MG/3ML Soln] 3 ml IH QID PRN [Last Taken Unknown] Bisacodyl [Dulcolax Suppository] 10 mg RC DAILY PRN 12/20/16 [Last Taken Unknown ] Carbamide Peroxide [Debrox] 5 drop OT BID 12/20/16 [Last Taken Unknown] Chlorhexidine Gluconate [Periogard Oral Rinse 0.12%] 15 ml MM BID 12/20/16 [ Last Taken Unknown] Cranberry Fruit [Cranberry] 400 mg PO BID 12/20/16 [Last Taken Unknown] Escitalopram Oxalate [Lexapro] 10 mg PO DAILY 12/20/16 [Last Taken Unknown] Esomeprazole Magnesium [Nexium] 40 mg PO DAILY 12/20/16 [Last Taken Unknown] Furosemide [Lasix] 20 mg PO DAILY 12/20/16 [Last Taken Unknown] HYDROcodone/ACETAMINOPHEN [[place] 5-325] 1 tab PO Q4H PRN 12/20/16 [Last Taken Unknown] Hydrophilic Ointment [Aquaphilic Ointment] 1 appl TP PRN PRN 12/20/16 [Last Taken Unknown] Ipratropium [place] [Atrovent Hfa] 1 puff IH QID 12/20/16 [Last Taken Unknown] Lanolin Alcohol/Mo/W.pet/[place] [Eucerin Creme] 1 appl TP DAILY 12/20/16 [Last Taken Unknown] Levothyroxine Sodium [Synthroid] 125 mcg PO DAILY 12/20/16 [Last Taken Unknown] Nystatin [Mycostatin (Nystatin) Cream] 1 appl TP BID 12/20/16 [Last Taken Unknown] OLANZapine [Zyprexa] 20 mg PO HS 12/20/16 [Last Taken Unknown] Polyethylene Glycol 3350 [Miralax] 17 gm PO DAILY 12/20/16 [Last Taken Unknown] Polyvinyl Alcohol [Artificial Tears] 2 drop OP QID PRN 12/20/16 [Last Taken Unknown] Rosuvastatin Calcium [Crestor] 10 mg PO HS 12/20/16 [Last Taken Unknown] Saliva Substitute Combo No.9 [Biotene] 1 appl MM PCHS 12/20/16 [Last Taken Unknown] Simethicone [Mylicon Drops] 20 ml PO TID PRN 12/20/16 [Last Taken Unknown] Sodium Chloride [Saline Mist] 1 spray NS BID 12/20/16 [Last Taken Unknown] Sucralfate [Carafate] 1 gm PO ACHS 12/20/16 [Last Taken Unknown] Triamcinolone Acetonide [Kenalog 0.5%] 1 appl TP BID 12/20/16 [Last Taken Unknown] Triamcinolone Acetonide [Kenalog] 100 gm TP BID 12/20/16 [Last Taken Unknown] guaiFENesin/DEXTROMETHORPHAN [Tussin Dm Syrup] 10 ml PO Q4H PRN 12/20/16 [Last Taken Unknown] lamoTRIgine [Lamictal] 100 mg PO BID 12/20/16 [Last Taken Unknown] levETIRAcetam [Keppra] 1,000 mg PO HS 12/20/16 [Last Taken Unknown] levETIRAcetam [Keppra] 500 mg PO DAILY 12/20/16 [Last Taken Unknown] - History of Present Ilness Narrative: Pt. with recent upper resp. infection comes from skilled nursing with c/o non responsiveness and gurgling since this morning. Pt. has had the gurgling in his throat for three days as reported by his caregivers. Pt. has been unresponsive for unknown length of time but at least since 0700 due to that is when the caregiver came on shift and went to check on pt. Caregiver denies any aspiration or SOB in previous days. Pt. is known DNR/ DNI, but POA does want all other treatment at this time. Review of Systems - Review of Systems Constitutional: Present: recent illness, weakness, decreased activity level. Absent: fever, chills, fatigue, malaise EYE: Present: no symptoms reported ENT: Present: no symptoms reported Respiratory: Present: cough, other - gurgling. Absent: shortness of breath, wheezing Cardiology: Present: no symptoms reported Gastrointestinal/Abdominal: Present: no symptoms reported Genitourinary: Present: no symptoms reported Musculoskeletal: Present: no symptoms reported Neurological: Present: no symptoms reported Endocrine: Present: no symptoms reported Hematologic/Lymphatic: Present: no symptoms reported Psych: Present: no symptoms reported All Other Systems: All systems neg except as marked - Patient's Past Medical History Patient History - Medical: Alzheimer's Disease, Anxiety, Depression, GERD, Hypothyroidism, Renal Failure, Seizures Patient History - Cardiac/Respiratory: CHF, Hyperlipidemia Patient History - Cancer: No Hx of Cancer Patient History - Surgical Procedures: Cataracts, T & A Patient History - Other: None - Family History Mother Family History - Medical: Family History - Cardiac/Respiratory: Coronary Heart Disease Father Family History - Medical: Family History - Cardiac/Respiratory: Coronary Heart Disease - Social History Living Situations: assisted living Abuse History: No History of abuse Psych History: No pertinent hx Smoking Status: Never smoker Have you smoked in the past 12 months: No Do you dip or chew tobacco: No Alcohol Use: none Drug Use: none - Immunizations Immunizations Up to Date: Yes Hx Pneumococcal Vaccination: Yes History of Influenza Vaccine: Yes Physical Exam - Physical Exam General Appearance: Present: wd/wn, other - unresponsive with kailyn robledo breathing Eye Exam: Abnormal EOM: bilateral - no movement, Abnormal pupil: bilateral - fixed at 4mm, Other: bilateral - no corneal reflex or blink reflex Ears, Nose, Throat: Present: sinus pain/drainage, tonsillar exudate - white Neck: Present: normal inspection, nontender Respiratory: Present: rhonchi, other - kailyn robledo Cardiovascular/Chest: Present: regular rate, rhythm, no murmur, normal peripheral pulses Gastrointestinal/Abdominal: Present: normal bowel sounds, nondistended, soft, no organomegaly Back Exam: Present: normal inspection Extremity Exam: Present: other - mottling to extremities Neurological Exam: Present: other - unresponsive Skin Exam: Present: other - mottled extremities, dusky centrally ED Progress - Date and Time Seen: Date and Time: 12/20/16 10:46 POA made aware of pt. condition and is on her way at this time. 12/20/16 11:52 Pt. alert and tracking at this time. Resp deep suction dry secretions from pt. 12/20/16 1200 Discussed at length options with Dr Alegria and he would like pt to follow up outpatient. 1245 Family decided to make pt. comfort measures but would like pt. to stay in hospital to receive some IV abx as he is unable to swallow at this time. Nurses repeated deep suction at this time. 1315 Discussed POC with caregivers as Dr Alegria ok having pt. stay one night to prepare staff. Caregivers asked appropriate questions and all answered at this time. - Results and Orders Patient's Lab Results:: I have reviewed the patient's lab results. - Vital Signs Patient's Vital Signs:: I have reviewed the patient's vital signs. Vital Signs: Vital Signs 12/20/16 12/20/16 09:40 09:56 Temperature 36.9 C 36.7 C Pulse Rate 65 65 Respiratory 24 H 24 H Rate Blood Pressure 126/60 126/60 O2 Sat by Pulse 93 91 Oximetry - EKG EKG: NSR EKG read: Reviewed by me EKG Comments: Interpreted by Dr Alejandre - X-Ray X-Ray #1 X-Ray: chest Interpretation: Reviewed by me X-ray Comments: Bibasilar infiltrates tiny effusions in the costophrenic angles - CT/Ultrasound CT/Ultrasound Narrative: No acute process Prominent lateral ventricles and lipoma unchanged on head CT - Progress/Reassessment Chief Complaint: Upper Respiratory Symptoms Progress:: Re-examined Departure - Departure Clinical Impression: Pneumonia Qualifiers: Pneumonia type: due to unspecified organism Laterality: bilateral Lung location : lower lobe of lung Qualified Code(s): J18.9 - Pneumonia, unspecified organism Altered mental status, unspecified Qualifiers: Altered mental status type: coma Coma depth: Ananda coma 3-8 Coma timing: at hospital admission Qualified Code(s): R40.2433 - Ananda coma scale score 3-8, at hospital admission Disposition: [facility] Condition: Serious
[2016-12-20 10:57] LABS: CRP 5.7 mg/dL (0.0-0.9); Troponin I Less than 0.017 ng/ml (0.00-0.10)
[2016-12-20 11:00] LABS: Albumin * 2.6 gm/dl (3.4-5.0); Anion Gap 9.7 mmol/L (6.8-13.8); BUN/Creatinine Ratio 11.4 (9.0-21.6); Bilirubin, Total 0.4 mg/dL (0.0-1.1); Ca. Corrected For Albumin 9.1 mg/dL (8.4-10.2); Calcium * 8.3 mg/dL (7.9-10.9); Carbon Dioxide 32.7 mmol/L (24-32.6); Potassium 4.4 mmol/L (3.4-4.6); Total Protein 6.9 gm/dL (6.2-8.2)
--- OUTSIDE RECORDS SUMMARY | 2016-12-20 11:05 | XMS REPORT | Continuity of Care Document ---
:1945 Author Organization [facility] ([facility]) Address [address] [place] [address] Phone [phone] Care Team Providers Name Role Phone Jared Copeland Primary Care Provider [phone] Source Comments This disclosure is being made pursuant to the Care Everywhere program, applicable federal and state laws, and may not contain all informaitonavailable regarding this patient.[facility] ([facility]) Active Allergies and Adverse Reactions [...] 3350 (MIRALAX) 17 times daily. gram/dose powder [place]-3 Fatty Take 1,000 mg by Active Acids-Vitamin [...] as Active PHOS,DI-BA (FLEET ENEMA needed. [place]) Mslaydllmdi-Vgfeu-Vyzu. 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
[2016-12-20] MEDS ORDERED: LEVOFLOXACIN/D5W 750 MG in Premix Bag 1 BAG IV ONE (11:50)
[2016-12-20 12:03] LABS: Urine Bilirubin Negative (NEGATIVE); Urine Blood Negative /ul (NEGATIVE); Urine Ketone Negative (NEGATIVE); Urine Nitrite Negative (NEGATIVE); Urine Protein Negative (NEGATIVE); Urine Urobilinogen Normal (NORMAL)
[2016-12-20 12:19] LABS: Urine Appearance Clear; Urine Color Yellow
[2016-12-20 12:20] LABS: Urine Bacteria None Seen; Urine RBC None Seen /hpf (0-5); Urine WBC 0-5 /hpf (0-5)
--- OUTSIDE RECORDS SUMMARY | 2016-12-20 14:48 | XMS REPORT | Continuity of Care Document ---
:1945 Author Organization [facility] ([facility]) Address [address] [place] [address] Phone [phone] Care Team Providers Name Role Phone Jared Copeland Primary Care Provider [phone] Source Comments This disclosure is being made pursuant to the Care Everywhere program, applicable federal and state laws, and may not contain all informaitonavailable regarding this patient.[facility] ([facility]) Active Allergies and Adverse Reactions Allergen [...] 3350 (MIRALAX) 17 times daily. gram/dose powder [place]-3 Fatty Take 1,000 mg by Active Acids-Vitamin [...] rectally as Active PHOS,DI-BA (FLEET ENEMA needed. [place]) Crafisczvlm-Bqeef-Ymtd. 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
--- NOTE | 2016-12-20 16:04 | HP ---
Chief Complaint - Chief Complaint Date of Service: 12/20/16 Time of Service: 16:01 Chief Complaint: unresponsiveness/gurgling sound History of Present Illness: Lauro Fernando, is a 71-year-old white male, with previous medical history of Down syndrome, mental retardation, recurrent pneumonias, seizure disorder, who for the last 3 days has been noted to have been making gu rgling sounds likely from aspiration. Today the patient has been unresponsive since 7:00 this morning. He was then brought to our emergency room, where he was found to be unresponsive even to deep sternal stimulation. His chest x-ray again showed bibasilar infiltrates. His white blood cell count is within normal limits. The CT scan of his head showed probable normal pressure hydrocephalus. He is going to be admitted for observation and will be started on IV antibiotics. This being his fourth to fifth admission in the the last year for recurrent aspiration pneumonias, discussion with family was done and they have decided that upon discharge, if patient gets worst to maintain comfort care only with referral to hospice. He is a DNR/DNI. - Patient's Past Medical History Patient History - Medical: Alzheimer's Disease, Anxiety, Depression, GERD, Hypothyroidism, Renal Failure, Seizures Patient History - Cardiac/Respiratory: CHF, Hyperlipidemia Patient History - Cancer: No Hx of Cancer Patient History - Surgical Procedures: Cataracts, T & A Patient History - Other: None - Family History Mother Family History - Medical: Family History - Cardiac/Respiratory: Coronary Heart Disease Family History - Cancer: No pertinent family hx Father Family History - Medical: Family History - Cardiac/Respiratory: Coronary Heart Disease Family History - Cancer: No pertinent family hx - Social History Living Situations: assisted living Abuse History: No History of abuse Psych History: No pertinent hx Smoking Status: Never smoker Have you smoked in the past 12 months: No Do you dip or chew tobacco: No Alcohol Use: none Drug Use: none - Immunizations Immunizations Up to Date: Yes Hx Pneumococcal Vaccination: Yes History of Influenza Vaccine: Yes Review Of Systems (GEN) - Review of Systems Generalized/Overall Review: Present: No Symptoms Reported EENTM: Present: No Symptoms Reported Respiratory: Present: No Symptoms Reported Cardiac: Present: No Symptoms Reported Abdominal: Present: No Symptoms Reported Genitourinary: Present: No Symptoms Reported Musculoskeletal: Present: No Symptoms Reported Neurological: Present: No Symptoms Reported Skin: Present: No Symptoms Reported Endocrine: Present: No Symptoms Reported Misc: All systems neg except as marked - Not obtainable due to patient's mental status Allergies/Adverse Reactions: Allergies Allergy/AdvReac Type Severity Reaction Status Date / Time soap Allergy Severe Hives Verified 12/20/16 16:16 amoxicillin [Amoxicillin] Allergy Verified 12/20/16 16:16 prednisone Allergy Verified 12/20/16 16:16 tamsulosin HCl [From Flomax] Allergy Verified 12/20/16 16:16 Home Medications: HOME MEDICATIONS ALPRAZolam [Xanax] 0.5 mg PO TID PRN 12/20/16 [Last Taken Unknown] Acetaminophen [Tylenol] 1,000 mg PO Q6H PRN 12/20/16 [Last Taken Unknown] Albuterol Sulfate [Proair Hfa] 1 puff IH QID PRN 12/20/16 [Last Taken Unknown] Albuterol Sulfate/Ipratropium [Duoneb 2.5-0.5MG/3ML Soln] 3 ml IH QID PRN [Last Taken Unknown] Bisacodyl [Dulcolax Suppository] 10 mg RC DAILY PRN 12/20/16 [Last Taken Unknown ] Carbamide Peroxide [Debrox] 5 drop OT BID 12/20/16 [Last Taken Unknown] Chlorhexidine Gluconate [Periogard Oral Rinse 0.12%] 15 ml MM BID 12/20/16 [ Last Taken Unknown] Cranberry Fruit [Cranberry] 400 mg PO BID 12/20/16 [Last Taken Unknown] Escitalopram Oxalate [Lexapro] 10 mg PO DAILY 12/20/16 [Last Taken Unknown] Esomeprazole Magnesium [Nexium] 40 mg PO DAILY 12/20/16 [Last Taken Unknown] Furosemide [Lasix] 20 mg PO DAILY 12/20/16 [Last Taken Unknown] HYDROcodone/ACETAMINOPHEN [[place] 5-325] 1 tab PO Q4H PRN 12/20/16 [Last Taken Unknown] Hydrophilic Ointment [Aquaphilic Ointment] 1 appl TP PRN PRN 12/20/16 [Last Taken Unknown] Ipratropium [place] [Atrovent Hfa] 1 puff IH QID 12/20/16 [Last Taken Unknown] Lanolin Alcohol/Mo/W.pet/[place] [Eucerin Creme] 1 appl TP DAILY 12/20/16 [Last Taken Unknown] Levothyroxine Sodium [Synthroid] 125 mcg PO DAILY 12/20/16 [Last Taken Unknown] Nystatin [Mycostatin (Nystatin) Cream] 1 appl TP BID 12/20/16 [Last Taken Unknown] OLANZapine [Zyprexa] 20 mg PO HS 12/20/16 [Last Taken Unknown] Polyethylene Glycol 3350 [Miralax] 17 gm PO DAILY 12/20/16 [Last Taken Unknown] Polyvinyl Alcohol [Artificial Tears] 2 drop OP QID PRN 12/20/16 [Last Taken Unknown] Rosuvastatin Calcium [Crestor] 10 mg PO HS 12/20/16 [Last Taken Unknown] Saliva Substitute Combo No.9 [Biotene] 1 appl MM PCHS 12/20/16 [Last Taken Unknown] Simethicone [Mylicon Drops] 20 ml PO TID PRN 12/20/16 [Last Taken Unknown] Sodium Chloride [Saline Mist] 1 spray NS BID 12/20/16 [Last Taken Unknown] Sucralfate [Carafate] 1 gm PO ACHS 12/20/16 [Last Taken Unknown] Triamcinolone Acetonide [Kenalog 0.5%] 1 appl TP BID 12/20/16 [Last Taken Unknown] Triamcinolone Acetonide [Kenalog] 100 gm TP BID 12/20/16 [Last Taken Unknown] guaiFENesin/DEXTROMETHORPHAN [Tussin Dm Syrup] 10 ml PO Q4H PRN 12/20/16 [Last Taken Unknown] lamoTRIgine [Lamictal] 100 mg PO BID 12/20/16 [Last Taken Unknown] levETIRAcetam [Keppra] 1,000 mg PO HS 12/20/16 [Last Taken Unknown] levETIRAcetam [Keppra] 500 mg PO DAILY 12/20/16 [Last Taken Unknown] Exam - Exam Vital Signs: Vital Signs - Last Taken Temp 36.7 C 12/20/16 14:24 Pulse 70 12/20/16 14:24 Resp 17 12/20/16 14:24 BP 127/56 12/20/16 14:24 Pulse Ox 96 12/20/16 14:24 Constitutional: Present: Alert - AAO x 1, Somnolent ENT Exam: Present: hearing grossly normal Eye Exam: bilateral eye: normal inspection, PERRL, EOMI Neck: Present: supple Respiratory: Present: decreased breath sounds, crackles - occasional, No wheezing Cardiovascular/Chest: Present: regular rate, rhythm, no JVD, no murmur Abdomen: Present: Normal bowel sounds, soft, nontender, nondistended Extremity: Present: no pedal edema, no calf tenderness Diagnostic Studies: Laboratory Results WBC 4.9 K/mm3 (4.0-10.5) D 12/20/16 10:25 RBC 4.10 M/mm3 (4.7-6.0) L 12/20/16 10:25 Hgb 12.3 gm/dL (13.5-18.0) L 12/20/16 10:25 Hct 39.3 % (42.0-52.0) L 12/20/16 10:25 MCV 95.9 fl (78-100) 12/20/16 10:25 MCH 30.0 pg (27-31) 12/20/16 10:25 MCHC 31.3 g/dl (32-36) L 12/20/16 10:25 RDW 16.2 % (11.5-14.0) H 12/20/16 10:25 Plt Count 174 K/mm3 (150-450) 12/20/16 10:25 MPV 10.8 fl (6.0-9.5) H 12/20/16 10:25 Immature Gran % (Auto) 0.60 % (0.001-0.429) H 12/20/16 10:25 Immature Gran # (Auto) 0.03 K/mm3 (0.000-0.0310) 12/20/16 10:25 Neutrophils % 70.1 % (42-75.0) 12/20/16 10:25 Lymphocytes % 18.6 % (20-51) L 12/20/16 10:25 Monocytes % 7.9 % (0.0-9) 12/20/16 10:25 Eosinophils % 2.8 % (0.0-3.0) 12/20/16 10:25 Basophils % 0.0 % (0.0-1.0) 12/20/16 10:25 Nucleated RBC % 0.0 k/mm3 (0-1) 12/20/16 10:25 Neutrophils # 3.5 K/mm3 (1.3-6.0) 12/20/16 10:25 Lymphocytes # 0.9 k/mm3 (1.5-3.5) L 12/20/16 10:25 Monocytes # 0.4 k/mm3 (0.0-1.0) 12/20/16 10:25 Eosinophils # 0.1 k/mm3 (0.0-0.7) 12/20/16 10:25 Absolute Basophils 0.0 k/mm3 (0.0-0.1) 12/20/16 10:25 ESR 55 mm/hr (0-10) H 12/20/16 10:25 pCO2 45.6 mmHg (35.0-48.0) 12/20/16 10:50 pO2 76.0 mmHg (83.0-108.0) L 12/20/16 10:50 HCO3 26.1 mmol/L (21.0-28.0) 12/20/16 10:50 Total CO2 27.5 mmol/L (19.0-24.0) H 12/20/16 10:50 Base Excess 0.5 mmol/L (-2.0-3.0) 12/20/16 10:50 ABG pH 7.38 (7.35-7.45) 12/20/16 10:50 ABG O2 Sat (Measured) 94.9 % (94.0-98.0) 12/20/16 10:50 Sodium 146 mmol/L (132-142) H 12/20/16 10:25 Plasma Sodium 146 mmol/L (130-142) H 12/20/16 10:25 Potassium 4.4 mmol/L (3.4-4.6) 12/20/16 10:25 Chloride 108 mmol/L (97-106) H 12/20/16 10:25 Carbon Dioxide 32.7 mmol/L (24-32.6) H 12/20/16 10:25 Anion Gap 9.7 mmol/L (6.8-13.8) 12/20/16 10:25 BUN 20 mg/dL (6-23) 12/20/16 10:25 Creatinine 1.75 mg/dL (0.4-1.4) H 12/20/16 10:25 Est GFR (Non-Af Amer) 41 mL/min (60-130) L 12/20/16 10:25 BUN/Creatinine Ratio 11.4 (9.0-21.6) 12/20/16 10:25 Random Glucose 93 mg/dL (70-110) 12/20/16 10:25 Lactic Acid, Venous 1.3 mmol/L (0.4-2.0) 12/20/16 10:25 Calcium 8.3 mg/dL (7.9-10.9) 12/20/16 10:25 Calcium Adj for Albumin 9.1 mg/dL (8.4-10.2) 12/20/16 10:25 Total Bilirubin 0.4 mg/dL (0.0-1.1) 12/20/16 10:25 AST 61 U/L (0-48) H 12/20/16 10:25 ALT 57 U/L (19-67) 12/20/16 10:25 Alkaline Phosphatase 117 U/L (50-170) 12/20/16 10:25 Troponin I Less than 0.017 ng/ml (0.00-0.10) 12/20/16 10:25 C-Reactive Prot, Quant 5.7 mg/dL (0.0-0.9) H 12/20/16 10:25 B-Natriuretic Peptide 200 pg/mL (5-350) 12/20/16 10:25 Total Protein 6.9 gm/dL (6.2-8.2) 12/20/16 10:25 Albumin 2.6 gm/dl (3.4-5.0) L 12/20/16 10:25 Urine Color Yellow 12/20/16 11:55 Urine Appearance Clear 12/20/16 11:55 Urine pH 6.0 pH (5.0-7.0) 12/20/16 11:55 Ur Specific [place] 1.020 SP.GR. (1.005-1.030) 12/20/16 11:55 Urine Protein Negative mg/dL (NEGATIVE) 12/20/16 11:55 Urine Glucose (UA) Negative mg/dL (NEGATIVE) 12/20/16 11:55 Urine Ketones Negative mg/dL (NEGATIVE) 12/20/16 11:55 Urine Blood Negative /ul (NEGATIVE) 12/20/16 11:55 Urine Nitrate Negative (NEGATIVE) 12/20/16 11:55 Urine Bilirubin Negative mg/dl (NEGATIVE) 12/20/16 11:55 Urine Urobilinogen Normal EU/dl (NORMAL) 12/20/16 11:55 Ur Leukocyte Esterase Negative /ul (NEGATIVE) 12/20/16 11:55 Urine RBC None seen /hpf (0-5) 12/20/16 11:55 Urine WBC 0-5 /hpf (0-5) 12/20/16 11:55 Ur Epithelial Cells None seen /hpf (0-5) 12/20/16 11:55 Urine Bacteria None seen (NONE) 12/20/16 11:55 Urine Culture Comments Culture to follow 12/20/16 11:55 Assessment/Plan - Assessment/Plan (1) Pneumonia Assessment: will continue with IV antinbiotics. Plan for discharge in a.m with oral antibioics and if patient condition worsens, he is for comfort measures only and hospice referral.. Problem: Acute Qualifiers: Pneumonia type: due to unspecified organism Laterality: bilateral Lung location: lower lobe of lung Qualified Code(s): J18.9 - Pneumonia, unspecified organism (2) Down syndrome Problem: Chronic (3) Mental retardation Problem: Chronic (4) Chronic renal failure, stage 3 (moderate) Problem: Chronic (5) Seizure disorder Problem: Chronic
[2016-12-20] MEDS ORDERED: ACETAMINOPHEN 500 MG TABLET PO PRN (16:24)
[2016-12-20] MEDS ORDERED: POLYVINYL ALCOHOL 150 DROP BTL OP PRN (16:24)
[2016-12-20] MEDS ORDERED: HYDROPHILIC OINTMENT 454 APPL JAR TP PRN (16:24)
[2016-12-20] MEDS ORDERED: ALPRAZolam 0.5 MG TABLET PO PRN (16:24)
[2016-12-20] MEDS ORDERED: ALBUTEROL SULFATE/IPRATROPIUM 3 ML NEBU IH PRN (16:24)
[2016-12-20] MEDS ORDERED: HYDROcodone/ACETAMINOPHEN 1 EACH TABLET PO PRN (16:24)
[2016-12-20] MEDS ORDERED: PIPERACILLIN SODIUM/TAZOBACTAM 3.375 GM in DEXTROSE 5 % IN WATER 100 ML IV SCH ×2 (16:30)
[2016-12-20] MEDS ORDERED: ALBUTEROL SULFATE 2.5 MG/3 ML VIAL.NEB IH PRN (16:38)
[2016-12-20] MEDS ORDERED: VANCOMYCIN HCL 1.5 GM in DEXTROSE 5 % IN WATER 500 ML IV SCH ×2 (17:00)
[2016-12-20] MEDS: DEXTROSE 5%-0.5 NORMAL SALINE 1,000 ML IV PRN (17:27)
[2016-12-20] MEDS: IPRATROPIUM BROMIDE 0.5 MG/2.5 ML VIAL.NEB IH SCH (19:13)
[2016-12-20] MEDS: Lytes/Yerba Santa 60 APPL BTL MM SCH ×2 (19:59→20:10)
[2016-12-20] MEDS: PIPERACILLIN SODIUM/TAZOBACTAM 3.375 GM in DEXTROSE 5 % IN WATER 100 ML IV SCH ×2 (19:59)
[2016-12-20] MEDS: lamoTRIgine 100 MG TABLET PO SCH (20:03)
[2016-12-20] MEDS ORDERED: ROSUVASTATIN CALCIUM 10 MG TABLET PO SCH (21:00)
[2016-12-20] MEDS ORDERED: levETIRAcetam 500 MG TABLET PO SCH (21:00)
[2016-12-20] MEDS ORDERED: OLANZapine 5 MG TABLET PO SCH (21:00)
[2016-12-21] MEDS: PIPERACILLIN SODIUM/TAZOBACTAM 3.375 GM in DEXTROSE 5 % IN WATER 100 ML IV SCH ×4 (02:43→10:35)
[2016-12-21] MEDS: DEXTROSE 5%-0.5 NORMAL SALINE 1,000 ML IV PRN (05:43)
[2016-12-21] MEDS ORDERED: LEVOTHYROXINE SODIUM 125 MCG TABLET PO SCH (07:00)
[2016-12-21] MEDS ORDERED: PANTOPRAZOLE SODIUM 40 MG TABLET.EC PO SCH (07:00)
[2016-12-21] MEDS: IPRATROPIUM BROMIDE 0.5 MG/2.5 ML VIAL.NEB IH SCH ×2 (07:07→11:00)
[2016-12-21] MEDS: lamoTRIgine 100 MG TABLET PO SCH (08:28)
[2016-12-21] MEDS: Lytes/Yerba Santa 60 APPL BTL MM SCH ×2 (08:29→12:04)
[2016-12-21] MEDS ORDERED: levETIRAcetam 500 MG TABLET PO SCH (09:00)
[2016-12-21] MEDS ORDERED: POLYETHYLENE GLYCOL 3350 119 GM BTL PO SCH (09:00)
[2016-12-21] MEDS ORDERED: MINERAL OIL/PETROLATUM,WHITE 454 APPL JAR TP SCH (09:00)
[2016-12-21] MEDS ORDERED: ESCITALOPRAM OXALATE 10 MG TAB PO SCH (09:00)
[2016-12-21] MEDS ORDERED: FUROSEMIDE 20 MG TABLET PO SCH (09:00)
[2016-12-21 10:43] VITALS: BP 104/62
--- NOTE | 2016-12-21 11:08 | DS ---
Description of Stay: Mr. Fernando is a 71-year-old male with a past medical history of Down syndrome, mental retardation, and recurrent aspiration pneumonia who is admitted on 12/20/2016 after he was noted to be unresponsive. He's had previous episodes of aspiration pneumonia. Chest x-ray shows bibasilar infiltrates. His WBC count was within normal limits on admission. CT of the head showed probable normal pressure hydrocephalus. He was admitted for observation and started on antibiotics vancomycin and Zosyn. He remains quite lethargic, but is arousable to loud verbal stimuli. He is taking oral medications as long as they are crushed and in applesauce. He will require suctioning due to aspiration pneumonia and inability to clear secretions. He will require pills to be crushed. After discussion with family, he will be discharged to [facility] housing. Hospice was offered. Mr. Fernando has been in hospice in the past but was discharged after 3 months with no decline in health status. Family wishes to maintain comfort and dignity. Procedures Performed: none Discharge Disposition: [facility] Disposition: Other health care facility Condition: Poor Discharge Activity: Activity as tolerated - With klaus lift Discharge Diet: Mech soft, Other - Mechanical soft. Must assist w/ meals. Problem Oriented Discharge Instructions to Patient/Family: Aspiration Precautions Additional Patient Instructions (free text): Contact Lorna Cheatham [facility] at discharge: [phone], when patient ready for cotton picker. Resume [facility]- fax discharge instructions and medications. Call nursing report to ext [phone]. Call any new medications into [facility] at [phone]. May use pill crusher loader operator to crush patient's medications. Prescriptions (Any new or edited meds): Clindamycin HCl [Cleocin HCl] 600 mg PO TID 7 Days Levofloxacin [Levaquin] 500 mg PO DAILY 9 Days Saccharomyces Boulardii [Florastor] 250 mg PO DAILY 10 Days Complete Home Medications List: Complete Home Medication List: ALPRAZolam [Xanax] 0.5 mg PO TID PRN 12/20/16 Acetaminophen [Tylenol] 1,000 mg PO Q6H PRN 12/20/16 Albuterol Sulfate/Ipratropium [Duoneb 2.5-0.5MG/3ML Soln] 3 ml IH QID PRN Bisacodyl [Dulcolax Suppository] 10 mg RC DAILY PRN 12/20/16 Carbamide Peroxide [Debrox] 5 drop OT BID 12/20/16 Chlorhexidine Gluconate [Periogard Oral Rinse 0.12%] 15 ml MM BID 12/20/16 Escitalopram Oxalate [Lexapro] 10 mg PO DAILY 12/20/16 Esomeprazole Magnesium [Nexium] 40 mg PO DAILY 12/20/16 Furosemide [Lasix] 20 mg PO DAILY 12/20/16 HYDROcodone/ACETAMINOPHEN [[place] 5-325] 1 tab PO Q4H PRN 12/20/16 Hydrophilic Ointment [Aquaphilic Ointment] 1 appl TP PRN PRN 12/20/16 Lanolin Alcohol/Mo/W.pet/[place] [Eucerin Creme] 1 appl TP DAILY 12/20/16 Levothyroxine Sodium [Synthroid] 125 mcg PO DAILY 12/20/16 Nystatin [Mycostatin Cream] 1 appl TP BID 12/20/16 OLANZapine [Zyprexa] 20 mg PO HS 12/20/16 Polyethylene Glycol 3350 [Miralax] 17 gm PO DAILY 12/20/16 Polyvinyl Alcohol [Artificial Tears] 2 drop OP QID PRN 12/20/16 Saliva Substitute Combo No.9 [Biotene] 1 appl MM PCHS 12/20/16 Simethicone [Mylicon Drops] 20 ml PO TID PRN 12/20/16 Sodium Chloride [Saline Mist] 1 spray NS BID 12/20/16 guaiFENesin/DEXTROMETHORPHAN [Tussin Dm Syrup] 10 ml PO Q4H PRN 12/20/16 lamoTRIgine [Lamictal] 100 mg PO BID 12/20/16 levETIRAcetam [Keppra] 1,000 mg PO HS 12/20/16 levETIRAcetam [Keppra] 500 mg PO DAILY 12/20/16 Clindamycin HCl [Cleocin HCl] 600 mg PO TID 7 Days 12/21/16 Levofloxacin [Levaquin] 500 mg PO DAILY 9 Days 12/21/16 Saccharomyces Boulardii [Florastor] 250 mg PO DAILY 10 Days 12/21/16
== END 2016-12-21 12:54 | disposition home health service (06) ==
LOC: ER 09:37 → MS 14:36
PROVIDERS: ADMIT Internal Medicine; ATTEND Internal Medicine
DX: J69.0 Pneumonitis due to inhalation of food and vomit (principal); Q90.9 Down syndrome, unspecified; F79 Unspecified intellectual disabilities; G40.909 Epilepsy, unspecified, not intractable, without status epilepticus; E03.9 Hypothyroidism, unspecified; G30.9 Alzheimer's disease, unspecified; F02.80 Dementia in other diseases classified elsewhere, unspecified severity, without behavioral disturbance, psychotic disturbance, mood disturbance, and anxiety; N18.3 Chronic kidney disease, stage 3 (moderate)
CPT/HCPCS: 36415; 36600; 70450; 71010; 80053; 81001; 82803; 83605; 83880; 84484; 85025; 85652; 86140; 87040; 87081; 87086; 93005; 94640; 94760; 96365; 96366; 96367; 99284; G0378